=== PATIENT | male | born 1955 | race Caucasian/White ===

== ENCOUNTER → 2018-01-22 | Outpatient (CLI) | payer OTHER ==
[~2018-01-22] MED LIST: ALBU90OI; Aspir 8181 MG PO; Cipro500 MG PO; ERYT.5TO; Flagyl500 MG PO; LOSA25; METO50 PO; Percocet 5-3251 EACH PO
[2018-01-22 15:50] LABS: Microalb/Creat Ratio UR, Rand 25.494 mg/g (0.000-30.000); Microalbumin, Random Urine 41.3 mg/L (0.000-20.000)
== END | disposition home or self-care (01) ==
LOC: LAB SHORT 13:25 → LAB 13:25
PROVIDERS: Family Medicine
DX: I10 Essential (primary) hypertension (principal); E78.5 Hyperlipidemia, unspecified; D72.829 Elevated white blood cell count, unspecified
CPT/HCPCS: 82043; 82570

== ENCOUNTER 2023-11-08 14:06 | Emergency (ER) | payer OTHER ==
[~2023-11-08] VITALS: Ht 185.4 cm; Wt 99.8 kg
[2023-11-08 14:18] VITALS: BP 163/108
== END 2023-11-08 15:02 | disposition home or self-care (01) ==
LOC: ER 14:06
DX: T24.231A Burn of second degree of right lower leg, initial encounter (principal); T31.0 Burns involving less than 10% of body surface; T24.121A Burn of first degree of right knee, initial encounter; T24.122A Burn of first degree of left knee, initial encounter; T25.111A Burn of first degree of right ankle, initial encounter; T25.112A Burn of first degree of left ankle, initial encounter; I10 Essential (primary) hypertension; J45.909 Unspecified asthma, uncomplicated; F17.200 Nicotine dependence, unspecified, uncomplicated; Z79.82 Long term (current) use of aspirin; Z79.899 Other long term (current) drug therapy; Z88.5 Allergy status to narcotic agent; Z88.8 Allergy status to other drugs, medicaments and biological substances; X16.XXXA Contact with hot heating appliances, radiators and pipes, initial encounter
CPT/HCPCS: 99282

== ENCOUNTER 2023-11-17 16:20 | Emergency (ER) | payer OTHER ==
[~2023-11-17] VITALS: Ht 185.4 cm; Wt 99.8 kg
[2023-11-17 16:24] VITALS: BP 152/111
[2023-11-17] MEDS ORDERED: CLIN300 PO (17:06)
== END 2023-11-17 17:19 ==
LOC: ER 16:20
DX: T24.232A Burn of second degree of left lower leg, initial encounter (principal); L08.9 Local infection of the skin and subcutaneous tissue, unspecified; T31.0 Burns involving less than 10% of body surface; I10 Essential (primary) hypertension; J45.909 Unspecified asthma, uncomplicated; F17.200 Nicotine dependence, unspecified, uncomplicated; Z79.899 Other long term (current) drug therapy; Z88.5 Allergy status to narcotic agent; Z88.8 Allergy status to other drugs, medicaments and biological substances; X16.XXXA Contact with hot heating appliances, radiators and pipes, initial encounter
CPT/HCPCS: 87070; 87075; 87077; 87186; 87205; 99282; A9270

== ENCOUNTER 2023-12-03 04:54 | Day surgery (SDC) | payer OTHER ==
[~2023-12-03 04:54] MED LIST changes: +CLIN300 PO
== END 2023-12-03 22:38 | disposition home or self-care (01) ==
LOC: WOUND 04:54
DX: T24.202D Burn of second degree of unspecified site of left lower limb, except ankle and foot, subsequent encounter (principal); T24.201D Burn of second degree of unspecified site of right lower limb, except ankle and foot, subsequent encounter; I73.9 Peripheral vascular disease, unspecified; I10 Essential (primary) hypertension; I87.2 Venous insufficiency (chronic) (peripheral); R06.02 Shortness of breath; J44.9 Chronic obstructive pulmonary disease, unspecified; Z88.5 Allergy status to narcotic agent
CPT/HCPCS: A9270; G0463

== ENCOUNTER 2023-12-10 03:44 | Day surgery (SDC) | payer OTHER | END 2023-12-10 22:57 | disposition home or self-care (01) | LOC: WOUND 03:44 | DX: T24.202A Burn of second degree of unspecified site of left lower limb, except ankle and foot, initial encounter (principal); T24.201A Burn of second degree of unspecified site of right lower limb, except ankle and foot, initial encounter; X16.XXXA Contact with hot heating appliances, radiators and pipes, initial encounter; I73.9 Peripheral vascular disease, unspecified; I87.2 Venous insufficiency (chronic) (peripheral); I10 Essential (primary) hypertension; J44.9 Chronic obstructive pulmonary disease, unspecified | CPT/HCPCS: A9270; G0463 ==

== ENCOUNTER 2023-12-27 01:38 | Day surgery (SDC) | payer OTHER | END 2023-12-27 23:14 | disposition home or self-care (01) | LOC: WOUND 01:38 | DX: T24.202D Burn of second degree of unspecified site of left lower limb, except ankle and foot, subsequent encounter (principal); T24.201D Burn of second degree of unspecified site of right lower limb, except ankle and foot, subsequent encounter; J44.9 Chronic obstructive pulmonary disease, unspecified; I10 Essential (primary) hypertension; I73.9 Peripheral vascular disease, unspecified; I87.2 Venous insufficiency (chronic) (peripheral); R06.02 Shortness of breath; X08.8XXD Exposure to other specified smoke, fire and flames, subsequent encounter | CPT/HCPCS: A9270; G0463 ==

== ENCOUNTER 2024-01-03 01:54 | Day surgery (SDC) | payer OTHER ==
[2024-01-03] MEDS ORDERED: Lidocaine HCl 4% Cream 5 GM ONE (15:40)
== END 2024-01-03 22:47 | disposition home or self-care (01) ==
LOC: WOUND 01:54
DX: T24.202A Burn of second degree of unspecified site of left lower limb, except ankle and foot, initial encounter (principal); T24.201A Burn of second degree of unspecified site of right lower limb, except ankle and foot, initial encounter; X08.8XXA Exposure to other specified smoke, fire and flames, initial encounter; I87.2 Venous insufficiency (chronic) (peripheral); I10 Essential (primary) hypertension; I73.9 Peripheral vascular disease, unspecified; R06.02 Shortness of breath; J44.9 Chronic obstructive pulmonary disease, unspecified
CPT/HCPCS: A9270

== ENCOUNTER 2024-01-11 01:34 | Day surgery (SDC) | payer OTHER | END 2024-01-13 23:15 | disposition home or self-care (01) | LOC: WOUND 01:34 | DX: T24.202D Burn of second degree of unspecified site of left lower limb, except ankle and foot, subsequent encounter (principal); T24.201D Burn of second degree of unspecified site of right lower limb, except ankle and foot, subsequent encounter; J44.9 Chronic obstructive pulmonary disease, unspecified; I10 Essential (primary) hypertension; I73.9 Peripheral vascular disease, unspecified; I87.2 Venous insufficiency (chronic) (peripheral); R06.02 Shortness of breath | CPT/HCPCS: G0463 ==

== ENCOUNTER 2024-01-17 03:04 | Day surgery (SDC) | payer OTHER ==
[2024-01-17] MEDS ORDERED: Lidocaine HCl 4% Cream 5 GM ONE (08:05)
== END 2024-01-17 22:44 | disposition home or self-care (01) ==
LOC: WOUND 03:04
DX: T24.202A Burn of second degree of unspecified site of left lower limb, except ankle and foot, initial encounter (principal); T24.201A Burn of second degree of unspecified site of right lower limb, except ankle and foot, initial encounter; W29.2XXA Contact with other powered household machinery, initial encounter; S71.102A Unspecified open wound, left thigh, initial encounter; S71.101A Unspecified open wound, right thigh, initial encounter; X58.XXXA Exposure to other specified factors, initial encounter; I10 Essential (primary) hypertension; J44.9 Chronic obstructive pulmonary disease, unspecified
CPT/HCPCS: A9270

== ENCOUNTER 2025-03-18 03:37 | Inpatient (IN) | payer SELFPAY ==
[2025-03-18] VITALS (20 sets, daily range): BP systolic 77–134; BP diastolic 39–88
[~2025-03-18] VITALS: Ht 182.9 cm; Wt 86.2 kg
[~2025-03-18 03:37] MED LIST changes: -ALBU90OI; +ALBU90OI INH
[2025-03-18 04:07] LABS: Hematocrit 45.3 % (37.0-53.0); Hemoglobin 14.7 g/dL (13.5-17.5); Mean Corpuscular HGB 31.3 pg (26.0-34.0); Mean Corpuscular HGB Conc 32.5 g/dL (31.5-36.5); Mean Corpuscular Volume 96 fL (80-100); Platelet Count 249 K/mm3 (150-400); RDW Coefficient Variation 14.6 % (11.7-14.2); RDW Standard Deviation 52.2 fL (35.1-46.3)
[2025-03-18] MEDS ORDERED: Piperacillin/Tazobactam Sod 3.375 GM in NS 100 ML IV ONE (04:20)
[2025-03-18] MEDS ORDERED: Lactated Ringer's 1,000 ML IV SCH ×2 (04:20→05:30)
[2025-03-18] MEDS ORDERED: Vancomycin HCL 2,000 MG in NS 520 ML IV ONE (04:20)
[2025-03-18 04:24] LABS: White Blood Cell Count 54.47 K/mm3 (4.00-11.30)
[2025-03-18 04:27] LABS: BAND PERCENT MAN 3 % (0-8); BASOPHILS PERCENT MAN 0 % (0-2); EOSINOPHILS PERCENT MAN 0 % (0-6); LYMPHOCYTES % ATYPICAL MANUAL 1 % (0-0); LYMPHOCYTES ABSOLUTE MAN 2.17 K/mm3 (0.84-5.20); LYMPHOCYTES PERCENT MAN 3 % (21-46); MONOCYTES ABSOLUTE MAN 1.63 K/mm3 (0.16-1.47); MONOCYTES PERCENT MAN 3 % (4-13); NEUTROPHILS ABSOLUTE MAN 50.65 K/mm3 (1.96-9.15); SEG NEUTROPHILS PERCENT MAN 90 % (41-73); TOTAL CELLS COUNTED 100
[2025-03-18 04:28] LABS: Albumin, Blood 2.1 g/dL (3.4-5.0); Albumin/Globulin Ratio 0.7 (0.8-1.8); Bilirubin, Total 1.5 mg/dL (0.1-1.0); Calcium, Blood 7.5 mg/dL (8.5-10.1); Creatinine, Blood 1.07 mg/dL (0.60-1.20); Globulin, Blood 3.1 g/dL (2.2-4.0); Potassium, Blood 3.4 mmol/L (3.5-5.5); Total Protein, Blood 5.2 g/dL (6.4-8.2)
[2025-03-18] MEDS ORDERED: NS 1,000 ML IV SCH (06:00)
[2025-03-18] MEDS ORDERED: Ondansetron HCl 2 MG / ML 2ML Vial IV PRN (06:00)
[2025-03-18] MEDS ORDERED: Albumin (Human) 25gm/100ml 100 ML IV ONE (06:55)
[2025-03-18] MEDS ORDERED: Potassium Chloride 40 MEQ in NS 250 ML IV ONE (07:00)
[2025-03-18] MEDS ORDERED: CALCIUM GLUC IN NACL, ISO-OSM 50 ML IV ONE (07:00)
[2025-03-18] MEDS ORDERED: Prochlorperazine Edisylate 10 mg Vial IV PRN (07:25)
[2025-03-18 07:27] LABS: Influenza A, PCR NEGATIVE (NEGATIVE); Influenza B, PCR NEGATIVE (NEGATIVE); Resp Syncytial Virus, PCR NEGATIVE (NEGATIVE); SARS-Cov-2 (COVID-19) PCR, MMC NEGATIVE (NEGATIVE)
[2025-03-18] MEDS ORDERED: Ipratropium/Albuterol SulF 2.5-0.5MG/3 ML Amp INH SCH (07:30)
[2025-03-18] MEDS ORDERED: Polyethylene Glycol 3350 17 gm PO PRN (07:30)
[2025-03-18] MEDS ORDERED: Docusate Sodium/Senna 1 Tab PO PRN (07:30)
[2025-03-18] MEDS ORDERED: Metoprolol Tartrate 1 MG/ML 5 ML VIAL IV PRN (07:35)
[2025-03-18] MEDS ORDERED: Mometasone/Formoterol MDI 200/5 mcg 13 GM INH SCH (07:45)
[2025-03-18] MEDS ORDERED: MethylPREDNISolone Sod Succ 125 MG Vial IV SCH (09:00)
[2025-03-18] MEDS ORDERED: Midodrine 2.5 MG Tab PO SCH (09:00)
[2025-03-18] MEDS ORDERED: Enoxaparin 40 MG/0.4 ML SYR SC SCH (09:00)
[2025-03-18] MEDS ORDERED: Furosemide 10 MG/ML 4ML Vial IV SCH (09:00)
--- NOTE | 2025-03-18 09:49 | NUR ---
0805 ARRIVED TO ICU PT FROM ER. PT IS AWAKE AND ALERT AND ORIENTED TO PLACE AND PERSON BUT NOT YEAR OR DATE OR TRUE SITUATION. HE BELIEVES HE IS HERE D/T HIS FALL THREE DAYS AGO HOWEVER HIS WBC IS ELEVATE AND HE WAS AFEBRILE LOW TEMP. PULSE IS AFIB 130-140'S AND BP IS LOW. NO HISTORY OF AFIB PER NOTED BY PT. HE DOESN'T TAKE BUT AN INHALER RESCUE WORTHY ONLY. LUNGS ARE CLEAR AND ABD IS SOFT AND GOOD BT THROUGHOUT. HE IS STILL LOW TEMP OF 96.3 F UPON ARRIVAL. PT HAS TWO PIV'S LEFT AC AND LEFT HAND.
[2025-03-18] MEDS ORDERED: Albuterol 2.5 MG/3 ML VIAL INH PRN (11:30)
[2025-03-18] MEDS ORDERED: Piperacillin/Tazobactam Sod 4.5 GM in NS 100 ML IV SCH (12:00)
[2025-03-18 12:04] LABS: Source, Urine Voided
[2025-03-18 12:09] LABS: Appearance, Urine Clear (Clear); Bilirubin, Urine Neg (Neg); Blood, Urine Neg (Neg); Color, Urine Yellow (P-Yellow); Glucose Qualitative, Urine Neg (Neg); Ketones, Urine Neg (Neg); Leukocyte Esterase, Urine Neg (Neg); Nitrite, Urine Neg (Neg); Protein, Urine Neg (Neg); Urobilinogen, Urine NORM (Normal)
[2025-03-18 12:34] LABS: U Amphetamine Screen DETECTED; U Barbituate Screen Not Detected; U Benzodiazapine Screen Not Detected; U Buprenorphine Screen Not Detected; U Cannabinoids Screen DETECTED; U Cocaine Screen Not Detected; U Methadone Screen Not Detected; U Methamphetamine Screen DETECTED; U Opiates Screen Not Detected; U Oxycodone Screen DETECTED; U Phencyclidine Screen Not Detected
[2025-03-18] MEDS ORDERED: PredniSONE 20 MG Tab PO SCH (14:00)
--- NOTE | 2025-03-18 14:35 | NUR ---
update PATIENT HAS BEEN UP IN CHAIR MOST OF THE MORNING ALONG WITH UP GOING TO THE BATHROOM FREQ. LIKE EVERY 20 MIN SINCE LASIX WAS GIVEN VOIDING ANYWHERE FROM 150-400ML OUT EACH TIME. HE HAS A SITTER AT BEDSIDE NOW D/T THE UNSTEADINESS ON HIS FEET AND IMPULISIVITY AND URGENCY AND FREQUENCY OF NEEDING TO VOID. PULSE DID GO DOWN TO 120'S AFIB WHEN GIVEN LOPRESSOR THIS AM HOWEVER IT DID CLIMB BACK UP TO 135-143 AGAIN AND SO NOW AT 1435 ANOTHER 5MG DOSE OF LOPRESSOR WAS GIVEN VIA IV. AWAITING FOR SERVICE CONTROL OPERATOR AND TO DO A CT OF CHEST. CALLED AND SPOKE WITH DR DARNELL REGARDING THE CXR RESULTS FROM THIS AM AND WE ARE NOT GOING TO DO A CT OF CHEST. ALSO SPOKE WITH PATIENTS SON DOTTIE AND GAVE HIM AN UPDATE.
[2025-03-18] MEDS ORDERED: Vancomycin HCL 1,000 MG in NS 250 ML IV SCH (17:00)
--- NOTE | 2025-03-18 18:35 | NUR ---
END OF SHIFT NOTE PT HAS BEEN AWAKE AND ACTIVE ALL DAY. HE CAME IN WITH HIGH WBC AND LACTIC 2.5 THEN DOWN TO 2.1 THEN BACK UP TO 3.3. PT HAS HAD A AFIB RHYTHM ALL DAY WITH RATES UP TO 143 AND LOW AT 118. HE HAS BEEN GIVEN LOPRESSOR IV 5MG IV TWO TIMES NOW. PT HAS BEEN UP TO CHAIR OR OUT OF BED TO TOILET VOIDING FREQ. ALL DAY. SITTER IS AT BEDSIDE TO HELP WITH LINE MANAGEMENT AND STEADING HIM WHEN HE IS OUT OF BED SO OFTEN. PT BP IS STILL SYSTOLICS HIGH 80'S LOW 90'S. MAP MID TO HIGH 60'S AND 70'S. PT ABLE TO EAT DINNER TONIGHT WITH SOFT TEXTURE D/T HIM NOT HAVING ANY TEETH AND REFUSES TO WEAR HIS DENTURES. HE HAS NOT HAD A BM OF YET TODAY. HIS TEMPURATURE HAS INCREASED TO NORMAL TEMP. CURRENTLY HERE AT THE END OF THE DAY. PT DOES NOT COMPLAIN OF ANY PAIN CURRENTLY. HE HAD AN ECHO TODAY. HE IS STILL SUPPOSE TO CO FOR A CT OF HIS CHEST. SON DOTTIE SPOKE WITH HIM ON THE PHONE TODAY BUT NO ONE HAS COME IN TO SEE HIM OF YET. ANTIBIOTICS GIVEN IV PERSCRIBED AND ALSO HE HAS BEEN GIVEN MIDODRINE TWICE TODAY BY MOUTH. WILL GIVE REPORT TO NEXT SHIFT TO RESUME CARE.
[2025-03-19] VITALS (15 sets, daily range): BP systolic 87–140; BP diastolic 63–112
[2025-03-19 04:10] LABS: Hematocrit 41.7 % (37.0-53.0); Hemoglobin 13.7 g/dL (13.5-17.5); Mean Corpuscular HGB 31.3 pg (26.0-34.0); Mean Corpuscular HGB Conc 32.9 g/dL (31.5-36.5); Mean Corpuscular Volume 95 fL (80-100); Mean Platelet Volume 9.3 fL (9.1-12.4); Platelet Count 264 K/mm3 (150-400); RDW Coefficient Variation 14.7 % (11.7-14.2); RDW Standard Deviation 51.3 fL (35.1-46.3); Red Blood Cell Count 4.38 M/mm3 (4.30-5.90)
[2025-03-19 04:12] LABS: White Blood Cell Count 57.08 K/mm3 (4.00-11.30)
[2025-03-19 04:29] LABS: Albumin, Blood 2.2 g/dL (3.4-5.0); Albumin/Globulin Ratio 0.8 (0.8-1.8); Bilirubin, Total 0.9 mg/dL (0.1-1.0); Bun/Creatinine Ratio 19.2 (12.0-20.0); Creatinine, Blood 1.04 mg/dL (0.60-1.20); Globulin, Blood 2.9 g/dL (2.2-4.0); Potassium, Blood 4.1 mmol/L (3.5-5.5); Total Protein, Blood 5.1 g/dL (6.4-8.2)
[2025-03-19 04:35] LABS: BAND PERCENT MAN 10 % (0-8); BASOPHILS PERCENT MAN 0 % (0-2); EOSINOPHILS PERCENT MAN 0 % (0-6); LYMPHOCYTES ABSOLUTE MAN 1.14 K/mm3 (0.84-5.20); LYMPHOCYTES PERCENT MAN 2 % (21-46); MONOCYTES ABSOLUTE MAN 3.42 K/mm3 (0.16-1.47); MONOCYTES PERCENT MAN 6 % (4-13); NEUTROPHILS ABSOLUTE MAN 52.51 K/mm3 (1.96-9.15); SEG NEUTROPHILS PERCENT MAN 82 % (41-73); TOTAL CELLS COUNTED 100
--- NOTE | 2025-03-19 05:14 | NUR ---
PT LEFT FOR CHEST CT COIL REWIND MACHINE OPERATOR, ZA, TOOK PT TO CT FOR ME. PT IN WHEELCHAIR, LEFT 0505.
--- NOTE | 2025-03-19 05:16 | NUR ---
PT RETURNED FROM CT 0516.
[2025-03-19] MEDS ORDERED: OxyCODONE HCL 5 MG TAB PO PRN (08:15)
[2025-03-19] MEDS ORDERED: Acetaminophen 325 MG TABLET PO PRN (08:15)
[2025-03-19] MEDS ORDERED: HYDROmorphone HCl/Pf 1MG SYR IV ONE (08:15)
[2025-03-19] MEDS ORDERED: Midodrine 5 MG Tab PO SCH ×2 (09:00)
[2025-03-19] MEDS ORDERED: Loratadine 10 MG Tab PO SCH (09:00)
[2025-03-19] MEDS ORDERED: Metoprolol Tartrate 25 MG Tab PO SCH (09:00)
[2025-03-19] MEDS ORDERED: PredniSONE 20 MG Tab PO SCH (09:00)
[2025-03-19] MEDS ORDERED: Piperacillin/Tazobactam Sod 4.5 GM in NS 100 ML IV SCH (14:00)
--- NOTE | 2025-03-19 16:07 | NUR ---
PT REQUESTED TO GO FOR A WALK. PT PROVIDED SLIP RESISTANT SOCKS AND WAS ASSISTED FOR HIS WALK. 1 RN WITH WHEELCHAIR BEHIND PT FOR IF HE WAS TO GET TIRED. THE OTHER RN MANAGING IV POLE. PT ABLE TO AMBULATE FROM ICU TO PCU, ROUGHLY 100 FEET, TOLERATED FAIR. PT GOT TIRED IN HIS LEGS AND WAS ABLE TO SIT IN WHEELCHAIR. PT WAS TAKEN TO COURT YARD FOR ROUGHLY 20 MINUTES. PT RETURNED TO ROOM AND WAS ABLE TO TRNAFER FROM WHEELCHAIR TO BED ON HIS OWN, TOLERATED WELL.
--- NOTE | 2025-03-19 16:17 | NUR ---
THIS RN GAVE REPORT TO ADMINISTRATIVE DIETITIAN, TOMASZ, TO TAKE OVER CARE.
--- NOTE | 2025-03-19 18:16 | NUR ---
SHIFT SUMMARY PT A&O X 4, IMPULSIVE. SITTER AT BEDSIDE. 1 ASST TO AMBULATE IN ROOM W CANE. VITALS STABLE, AFIB IN 90s-110s. NO ACUTE CHANGES THIS SHIFT. AMIODARONE DRIP INFUSING AT 0.5MG/HR. PT HAS EXCELLENT APPETITE T/O SHIFT, REQUESTING MULTIPLE SNACKS, COMPLIANT WITH SOFT/ BITE SIZED DIET. PT RE-EDUCATED ON IMPORTANCE OF MEDICATIONS MULTIPLE TIMES T/O SHIFT, STILL FREQUENTLY REQUESTS TO LEAVE BUT REPORTS THAT HE WILL STAY THROUGH THE NIGHT. PT TAKEN FOR WALK AND SAT IN COURTYARD W STAFF, WHICH EASED HIS FRUSTRATION/ DESIRE TO LEAVE.
[2025-03-19] MEDS ORDERED: TraZODone HCl 50 MG Tab PO SCH (21:00)
--- NOTE | 2025-03-19 21:08 | NUR ---
ASSUMPTION OF CARE PT LUYING IN BED IN NO APPARENT DISTRESS WITH SITTER IN ROOM. PT ALERT AND ORIENTED TO ALL. BP STABLE NOW THOUGH REPORT OF SOFT BP'S YESTERDAY. A FIB RHYTHM AT 115, AMIO INFUSING AT 0.05 MG/MIN. RESPIRATIONS REGULAR WITH CRACKLES IN BASES AND SAT OF 92% ON RA. NO CHEST PAIN/PRESSURE, AB PAIN, N/V. PT DENIES PAIN ANYWHERE AT THIS TIME. PT IS AGREEABLE TO STAY FOR LUNG BIOPSY TOMORROW. WILL CONTINUE PLAN OF CARE AND MAKE PT COMFORTABLE POSSIBLE.
[2025-03-20 00:24] VITALS: BP 99/65
[2025-03-20 03:58] VITALS: BP 109/80
[2025-03-20 04:02] LABS: Hemoglobin 13.3 g/dL (13.5-17.5); Mean Corpuscular HGB 31.7 pg (26.0-34.0); Mean Corpuscular HGB Conc 33.3 g/dL (31.5-36.5); Mean Corpuscular Volume 95 fL (80-100); Mean Platelet Volume 9.1 fL (9.1-12.4); Platelet Count 265 K/mm3 (150-400); RDW Coefficient Variation 15.1 % (11.7-14.2); RDW Standard Deviation 53.4 fL (35.1-46.3)
[2025-03-20 04:06] LABS: White Blood Cell Count 63.16 K/mm3 (4.00-11.30)
--- NOTE | 2025-03-20 04:10 | NUR ---
ASSUMPTION OF CARE ASSUMED CARE OF PT FROM [facility] O[facility] ICU @ 0400. PT IRATE ABOUT BEING WOKEN UP. MAKING STATEMENTS LIKE "WHO'S CAR DO I NEED TO THRASH FOR BEING WOKEN UP, WHERE SHOULD I PUT THE HOLES IN THE SPENCER HERE, BEING WOKEN UP LIKE THIS IS TORTURE DO YOU KNOW THE PENALTY FOR THAT?, I WILL NOT BE COOPERATIVE ANY MORE". PT NOW REFUSING TELEMETRY, REFUSING AMIODARONE GTT, REFUSING CARE IN GENERAL. STATES "I AM HERE FOR THIS LUNG BIOPSY AND THAT IS IT, NO OTHER CARE IS NEEDED. PT MENTATION PRESENTS APPROPRIATE TO MAKE DECISIONS FOR HEALTH - AXO4. VITALS TAKEN. TELE PULLED OFF, IV PULLED OUT EXCEPT FOR POWERGLIDE. PT ORIENTED TO ROOM. PT ARRIVED WITH SITTER AND WILL REMAIN WITH ONE AT THIS TIME HE VOIDS OFTEN UNSAFELY WITH DIURESING. PT HAS MADE IT VERY CLEAR IN FRONT OF MULTIPLE STAFF THAT "HE DOES NOT WANT ANYMORE CARE TONIGHT, NO MEDICATIONS, NOTHING".
[2025-03-20 04:19] LABS: Bun/Creatinine Ratio 21.3 (12.0-20.0); Calcium, Blood 8.2 mg/dL (8.5-10.1); Creatinine, Blood 0.94 mg/dL (0.60-1.20); Magnesium, Blood 2.1 mg/dL (1.6-2.4); Phosphorus, Blood 3.7 mg/dL (2.5-4.9); Potassium, Blood 3.9 mmol/L (3.5-5.5)
--- NOTE | 2025-03-20 04:22 | NUR ---
TRANSFER OF CARE PT AWOKE FOR TRANSFER OF CARE TO PCU 9 AND THE PT AWOKE SEVERELY UPSET. PT ANGRY AND THREATENING TO LEAVE AND PULL OUT ALL LINES. PT ALERT AND ORIENTED. PT COAXED INTO STAYING AND TRANSFERRING TO PCU 9, WITH THE PLAN TO TRY AND GO BACK TO SLEEP. AT TIME OF TRANSFER, A FIB RHYTHM AT 105. LAST BP AT 0030 MAP OF 75. RESPIRATIONS REGULAR. SATURATION 93% ON RA. COARSE AND DIMINISHED IN BASES. NO CHEST PAIN/PRESSURE, AB PAIN, N/V. PT AT MULTIPLE SNACKS DURING SHIFT, WITHOUT NOTABLE DIFFICULTY SWALLOWING. CONTINENT WITH URINE. PT INCONTINENT WITH FECES UPON AWAKENING FOR TRANSFER. WIPED AND ATTENDS CHANGED. AMIODARONE WAS INFUSING AT 0.5 MG/MIN AND ZOSYN AT 25ML/HR WHEN IV'S DISCONNECTED FOR TRANSFER/PT THREATENING TO PULL "EVERYTHING OUT." OF NOTE: PT IS EXPECTING BIOPSY IN THE AM. ACCORDING TO DR CHOWDARY MOST RECENT NOTE, EPI WILL FOLLOW PT, BUT PROCEDURE WILL BE DONE IN OUTPATIENT SETTING. PT UNAWARE OF THIS INFORMATION AT TIME OF TRANSFER. THIS INFO WAS INCLUDED IN HANDOFF REPORT TO RECEIVING RN IN PCU.
[2025-03-20 07:53] VITALS: BP 112/82
--- NOTE | 2025-03-20 08:02 | NUR ---
AM NOTE PT ALERT, ORIENTED X4; PATIENT EXPRESSING FRUSTRATION "PISSED OFF" REGARDING NOT HAVING THE BIOPSY BEING COMPLETED TODAY. PT STATES "YOU HAVE UNTIL 9AM", PATIENT COOPERATIVE WITH ASSESSMENT AND VS, CONTINUES TO REFUSE HEART MONITOR. PT DENIES PAIN, CHEST PAIN/PRESSURE, SOB, NAUSEA, DIZZINESS AND NUMB/TINGLING. BILATERAL RED/PURPLE. SPO2 >90% ON RA, BREATHING TACHYPNIC, LS DIM WITH CRACKLES IN THE BASES. REFUSING TELE, HR IRREGULARLY, IRREGULAR AT 120, BP STABLE. ABD SOFT, NONTENDER + B/T T/O. OTHER VSS. CALL LIGHT WITHIN REACH, SITTER AT BEDSIDE. NOTIFIED DR DARNELL OF PT FRUSTRATION AND PLANS TO LEAVE BY 9AM IF WE DO NOT HAVE PLANS TO DO THE BIOPSY. REACHED OUT TO RADIOLOGY TO SEE WHAT CAN BE DONE INPATIENT.
[2025-03-20] MEDS ORDERED: ASPI81CH PO (09:14)
[2025-03-20] MEDS ORDERED: METOPROLOL TARTRATE PO ×2 (09:15)
[2025-03-20] MEDS ORDERED: CEPH500 PO ×2 (10:18)
--- NOTE | 2025-03-20 11:26 | NUR ---
Shift Summary We are unable to complete biopsy as inpatient; patient and family educated; Dr Putnam at bedside this am, plans for discharge home. Patient educated on discharge insturctions, follow up appointments (to call if they do not hear by sunday), and medications. Patient did not want to stay in room while waiting for ride, left via wheelchair 1040.
[2025-03-21] MEDS ORDERED: IBUP400 PO ×2 (09:11)
== END 2025-03-20 10:43 | disposition home or self-care (01) | DRG 871 ==
LOC: ER 03:37 → ICUE 05:54 → PCU 03-20 03:39
PROVIDERS: Hospitalist; Student in an Organized Health Care Education/Training Program; ADMIT Internal Medicine
DX: A41.9 Sepsis, unspecified organism (principal); J18.9 Pneumonia, unspecified organism; J96.01 Acute respiratory failure with hypoxia; J44.1 Chronic obstructive pulmonary disease with (acute) exacerbation; I50.22 Chronic systolic (congestive) heart failure; I48.91 Unspecified atrial fibrillation; F17.210 Nicotine dependence, cigarettes, uncomplicated; F10.90 Alcohol use, unspecified, uncomplicated; R91.8 Other nonspecific abnormal finding of lung field; W18.30XA Fall on same level, unspecified, initial encounter; Z90.89 Acquired absence of other organs; Z98.890 Other specified postprocedural states; Z79.82 Long term (current) use of aspirin; Z79.899 Other long term (current) drug therapy; Z91.048 Other nonmedicinal substance allergy status; Z88.8 Allergy status to other drugs, medicaments and biological substances; Z87.19 Personal history of other diseases of the digestive system
CPT/HCPCS: 0241U; 36415; 70450; 71045; 71250; 72125; 80048; 80053; 80202; 81003; 83605; 83690; 83735; 83880; 84100; 84145; 84484; 85025; 85027; 87040; 92610; 93005; 93010; 93306; 94640; 94760; 94762; A9270; C1751; J0282; J0612; J1171; J1650; J1940; J2543; J2919; J3370; J3480; J7040; J7050; J7060; J7120; J7512; P9047

== ENCOUNTER 2025-03-21 05:18 | Inpatient (IN) | payer OTHER ==
[~2025-03-21] VITALS: Ht 188 cm; Wt 90.5 kg
[2025-03-21] VITALS (7 sets, daily range): BP systolic 92–113; BP diastolic 61–80
[~2025-03-21 05:18] MED LIST changes: +ASPI81CH PO; +CEPH500 PO; +METOPROLOL TARTRATE PO
[2025-03-21] MEDS ORDERED: Ketorolac Tromethamine 30mg Vial IM ONE (07:20)
[2025-03-21] MEDS ORDERED: IBUP400 PO ×2 (09:11)
[2025-03-21] MEDS ORDERED: Ipratropium/Albuterol SulF 2.5-0.5MG/3 ML Amp INH ONE (10:05)
[2025-03-21] MEDS ORDERED: Albuterol 2.5 MG/3 ML VIAL INH SCH ×2 (10:05→11:30)
[2025-03-21] MEDS ORDERED: PredniSONE 20 MG Tab PO ONE (10:05)
[2025-03-21] MEDS ORDERED: Azithromycin 500 MG in NS 250 ML IV ONE (11:30)
[2025-03-21] MEDS ORDERED: Ipratropium/Albuterol SulF 2.5-0.5MG/3 ML Amp INH SCH (11:55)
[2025-03-21] MEDS ORDERED: Metoprolol Tartrate 1 MG/ML 5 ML VIAL IV SCH ×3 (11:55→13:00)
[2025-03-21] MEDS ORDERED: Vancomycin HCL 2,000 MG in NS 500 ML IV ONE (12:10)
[2025-03-21] MEDS ORDERED: Piperacillin/Tazobactam Sod 4.5 GM in NS 100 ML IV ONE (12:10)
[2025-03-21] MEDS ORDERED: Ipratropium/Albuterol SulF 2.5-0.5MG/3 ML Amp INH PRN (12:40)
[2025-03-21 12:55] LABS: Hematocrit 47.3 % (37.0-53.0); Hemoglobin 14.8 g/dL (13.5-17.5); Mean Corpuscular HGB 31.4 pg (26.0-34.0); Mean Corpuscular HGB Conc 31.3 g/dL (31.5-36.5); Mean Platelet Volume 9.1 fL (9.1-12.4); Platelet Count 284 K/mm3 (150-400); RDW Coefficient Variation 15.8 % (11.7-14.2); RDW Standard Deviation 58.3 fL (35.1-46.3); Red Blood Cell Count 4.71 M/mm3 (4.30-5.90)
[2025-03-21] MEDS ORDERED: Metoprolol Tartrate 25 MG Tab PO SCH (13:00)
[2025-03-21 13:03] LABS: Mean Corpuscular Volume 100 fL (80-100)
[2025-03-21 13:07] LABS: White Blood Cell Count 64.35 K/mm3 (4.00-11.30)
[2025-03-21 13:09] LABS: Albumin, Blood 2.5 g/dL (3.4-5.0); Albumin/Globulin Ratio 0.7 (0.8-1.8); Bilirubin, Total 0.8 mg/dL (0.1-1.0); Bun/Creatinine Ratio 35.5 (12.0-20.0); Calcium, Blood 8.8 mg/dL (8.5-10.1); Creatinine, Blood 0.85 mg/dL (0.60-1.20); Globulin, Blood 3.6 g/dL (2.2-4.0); Magnesium, Blood 2.4 mg/dL (1.6-2.4); Potassium, Blood 4.5 mmol/L (3.5-5.5); Total Protein, Blood 6.1 g/dL (6.4-8.2)
[2025-03-21 13:49] LABS: BAND PERCENT MAN 16 % (0-8); BASOPHILS PERCENT MAN 0 % (0-2); EOSINOPHILS PERCENT MAN 0 % (0-6); LYMPHOCYTES ABSOLUTE MAN 3.21 K/mm3 (0.84-5.20); LYMPHOCYTES PERCENT MAN 5 % (21-46); MONOCYTES ABSOLUTE MAN 3.86 K/mm3 (0.16-1.47); MONOCYTES PERCENT MAN 6 % (4-13); NEUTROPHILS ABSOLUTE MAN 57.27 K/mm3 (1.96-9.15); SEG NEUTROPHILS PERCENT MAN 73 % (41-73); TOTAL CELLS COUNTED 100
[2025-03-21] MEDS ORDERED: Nicotine 21 MG PATCH TOP SCH (16:00)
[2025-03-21] MEDS ORDERED: Metoprolol Tartrate 1 MG/ML 5 ML VIAL IV PRN (16:00)
[2025-03-21 16:15] LABS: Adenovirus Not Detected (NOT DETECT); Coronavirus 229E Not Detected (NOT DETECT); Coronavirus HKU1 Not Detected (NOT DETECT); Coronavirus NL63 Not Detected (NOT DETECT); Human Metapneumovirus Not Detected (NOT DETECT); Human Rhinovirus/Enterovirus Not Detected (NOT DETECT); Influenza A/2009-H1 Not Detected (NOT DETECT); Influenza A/H1 Not Detected (NOT DETECT); Influenza A/H3 Not Detected (NOT DETECT); Influenza B Not Detected (NOT DETECT); SARS-Cov-2 (COVID-19), BioFire Not Detected (NOT DETECT)
[2025-03-21 16:16] LABS: Bordetella pertussis Not Detected (NOT DETECT); Chlamydophila pneumoniae Not Detected (NOT DETECT); Coronavirus OC43 Not Detected (NOT DETECT); Mycoplasma pneumoniae Not Detected (NOT DETECT); Parainfluenza Virus 1 Not Detected (NOT DETECT); Parainfluenza Virus 2 Not Detected (NOT DETECT); Parainfluenza Virus 3 Not Detected (NOT DETECT); Parainfluenza Virus 4 Not Detected (NOT DETECT); Respiratory Syncytial Virus Not Detected (NOT DETECT)
[2025-03-21] MEDS ORDERED: Acetaminophen 325 MG TABLET PO PRN (16:30)
[2025-03-21] MEDS ORDERED: TraMADol HCl 50 MG Tab PO PRN (16:35)
--- NOTE | 2025-03-21 18:00 | NUR ---
Update: Patient was found at the edge of the bed leaning over the rail. When asked what he was doing he stated, "no one will feed me." This RN discussed with the patient he has had multiple snacks and a dinner tray, he can have a snack before bedtime. The patient proceeded to get up out of the bed to walk into the hallway, to "go and get some cookies myself then." This RN instructed the patient he cannot walk into the pantry and get items himself, nursing staff are only allowed in the pantry. Patient proceeded to state, "fine then I will leave and get some food myself since you won't feed me." He pulled apart his IV tubing and began to bleed out of his IV, he was walking around the room gathering his belongings. This RN was able to get the patient to sit down, to remove his IV so he doesn't leak blood everywhere. This RN talked with the patient regarding the comments he made earlier to the nursing staff and this will not be tolerated if he chooses to stay. This RN left the room to obtain AMA paperwork,if it is his intention to leave. This RN and nursing documentation supervisor went into talk with the patient. He was lying face down on the bed. This RN talked with the patient about ernien AMA, the patient would like to stay. He is agreeable to put the telemetry back on and have a new IV placed. We also discussed with the patient if he chooses to stay he will listen to and sign a behavior contract. The patient then listened and signed the paperwork. Bed alarm on for safety. Call light in reach.
--- NOTE | 2025-03-21 18:16 | NUR ---
ADMIT NOTE RECEIVED REPORT FROM ED RN. PATIENT TO ROOM VIA [facility] AT 1510. PT SOLMULENT, WAKES EASILY TO VERBAL STIMULI, QUICKLY FALLING BACK TO SLEEP WITHOUT STIMULI. ORIENTED. PT REPORTS PAIN TO RIGHT HIP, MEDICATED PER EMAR. PT REQUESTING FOOD REPEATEDLY, PROVIDED AND SET BOUNDARIES ON SNACKS. PT DENIES CHEST PAIN/PRESSURE, SOB, NAUSEA, AND DIZZINESS. TELE AFIB 120-130'S, BP SOFT TRENDING UP. SPO2 >90% ON 3L O2 VIA NC, PT TAKES OFF REPEATEDLY AND REMINDED TO PUT IT BACK ON. ABD SOFT, NONTENDER, HYPERACTIVE BT NOTED T/O. NO EDEMA NOTED. BLE DISCOLORED. THIS EVENING PATIENT GETTING AGGITATED, DEMANDING ADDITIONAL FOOD AFTER DINNER TRAY WAS FINISHED, ATTEMPTED TO TALK TO PATIENT AND SET BOUNDARIES FOR SNACKS/FOOD. PT STARTED MAKE DEROGATORY STATEMENTS TO STAFF, WHEN HE WAS ASKED TO STOP HE CONTINUES; CHARGE AND MD NOTIFIED, MAD CONSULT PLACED.
--- NOTE | 2025-03-21 20:52 | NUR ---
ASSUMED CARE OF THIS PATIENT AT 1900. PT WAS SLEEPING FACE DOWN ON THE BED DID NOT HAVE NC ON, PULSE OX OR TELE MONITOR. THIS RN AWOKE PATIENT AND EXPLAINED THE IMPORTANCE OF THESE ITEMS, AFTER EDUCATION HE ALLOWED ME TO PUT ON TELE, CONTINUS PULSE OX AND NC AT 3 LITERS. PATIENT IS AGITATED ABOUT HOW HIS DAY WENT. THIS RN AND PATIENT AGREE IF HE WOULD WORK WITH ME TO DO ASSESMENT AND TAKE MEDICATION THAT WE WOULD PROVIDE WITH NIGHT SNACK BEFORE BED. PATIENT WAS COPPERATIVE WITH ASSESMENT AND MEDICATION PASS. ZOSYN IS CURRENTLY RUNNING PER EMAR. NEW IV NEEDED TO BE PLACED DUE TO PT RIPPING OUT PRIOR ONE BEFORE START OF SHIFT. PATIENT EXPLAINS THAT ALL HE WANTS IS TO FEEL BETTER AND FOR US TO CONTINUE TO PROVIDE SNACKS AT HIS REQUEST. HE HOWEVER AGREED TO THREE MEALS A DAY WITH A SNACK IN BETWEEN THOSE AND WAS REEDUCATED ON THIS. HE IS NOW SITTING UP IN BED WATCHING TV. BED IN LOWEST POSTION, CALL LIGHT IN REACH.
[2025-03-21] MEDS ORDERED: MethylPREDNISolone Sod Succ 125 MG Vial IV SCH (21:00)
[2025-03-21] MEDS ORDERED: Apixaban 5 MG Tab PO SCH (21:00)
[2025-03-21] MEDS ORDERED: Piperacillin/Tazobactam Sod 4.5 GM in NS 100 ML IV SCH (21:00)
--- NOTE | 2025-03-21 23:35 | NUR ---
NURSE NOTE THIS RN WENT TO REPLACE TELE STICKERS AND CONTINUS PULSE OX STICKER PATIENT WAS BEING INAPPROPRIATE ASKING ME TO CRAWL INTO BED WITH HIM AND TO HOLD HIM AND KEEP HIM WARM. PT WAS OFFERED WARM BLANKET, PT DENIED THIS NEED. THIS RN ASKED HIM NOT TO SPEAK LIKE THAT BECAUSE IT IS NOT APPROPRIATE AND PT REPLIED, "WELL IT'S NOT LIKE I SAID I WANTED TO HAVE SEX WITH YOU." THIS RN AGAIN ASKED PT TO STOP BEING INAPPROPRIATE AND EXITED THE ROOM. BED IN LOWEST POSTION, CALL LIGHT IN REACH.
[2025-03-22] MEDS ORDERED: Vancomycin HCL 1,250 MG in NS 250 ML IV SCH
[2025-03-22 03:20] VITALS: BP 135/91
[2025-03-22 04:48] LABS: EOSINOPHILS ABSOLUTE AUTO 0.06 K/mm3 (0.00-0.68); EOSINOPHILS PERCENT AUTO 0 % (0-6); Hematocrit 44.1 % (37.0-53.0); Hemoglobin 13.9 g/dL (13.5-17.5); IMMATURE GRAN ABSOLUTE AUTO 3.68 K/mm3 (0.00-0.10); IMMATURE GRAN PERCENT AUTO 5 % (0-1); LYMPHOCYTES ABSOLUTE AUTO 0.83 K/mm3 (0.84-5.20); LYMPHOCYTES PERCENT AUTO 1 % (21-46); MONOCYTES ABSOLUTE AUTO 0.76 K/mm3 (0.16-1.47); MONOCYTES PERCENT AUTO 1 % (4-13); Mean Corpuscular HGB 31.7 pg (26.0-34.0); Mean Corpuscular HGB Conc 31.5 g/dL (31.5-36.5); Mean Corpuscular Volume 101 fL (80-100); Mean Platelet Volume 9.3 fL (9.1-12.4); NEUTROPHILS ABSOLUTE AUTO 70.78 K/mm3 (1.96-9.15); NEUTROPHILS PERCENT AUTO 93 % (41-73); Platelet Count 270 K/mm3 (150-400); RDW Coefficient Variation 15.6 % (11.7-14.2); RDW Standard Deviation 58.4 fL (35.1-46.3); Red Blood Cell Count 4.39 M/mm3 (4.30-5.90)
[2025-03-22 04:53] LABS: BASOPHILS ABSOLUTE AUTO 0.02 K/mm3 (0.00-0.23); BASOPHILS PERCENT AUTO 0 % (0-2); White Blood Cell Count 76.13 K/mm3 (4.00-11.30)
[2025-03-22 05:06] LABS: Albumin, Blood 2.4 g/dL (3.4-5.0); Albumin/Globulin Ratio 0.7 (0.8-1.8); Bilirubin, Total 0.6 mg/dL (0.1-1.0); Bun/Creatinine Ratio 37.8 (12.0-20.0); Calcium, Blood 8.4 mg/dL (8.5-10.1); Creatinine, Blood 0.77 mg/dL (0.60-1.20); Globulin, Blood 3.4 g/dL (2.2-4.0); Potassium, Blood 4.6 mmol/L (3.5-5.5); Total Protein, Blood 5.8 g/dL (6.4-8.2)
[2025-03-22 05:33] LABS: BAND PERCENT MAN 16 % (0-8); BASOPHILS PERCENT MAN 0 % (0-2); EOSINOPHILS PERCENT MAN 0 % (0-6); LYMPHOCYTES ABSOLUTE MAN 0.76 K/mm3 (0.84-5.20); LYMPHOCYTES PERCENT MAN 1 % (21-46); METAMYELOCYTE ABSOLUTE MAN 0.76 K/mm3 (0.00-0.00); METAMYELOCYTE PERCENT MAN 1 % (0-0); MONOCYTES PERCENT MAN 0 % (4-13); SEG NEUTROPHILS PERCENT MAN 82 % (41-73); TOTAL CELLS COUNTED 100
--- NOTE | 2025-03-22 06:36 | NUR ---
SHIFT SUMMARY PT REMAINS A+O X4 BUT STILL MAKING INAPPROPRIATE COMMENTS TO STAFF MEMBERS AND DEMANDING FOOD EVERYTIME STAFF COMES INTO ROOM FOR CARES. PT HAS BEEN EDUCATED ON TREATMENT CONTRACT OF BEHAVIORS HE SIGNED YESTERDAY BUT STILL CONTINUES TO ACT OUT. PT IS A SBA TO BATHROOM TO ASSIST WITH LINES. IV ABX GIVEN PER EMAR. CRITICAL WBC COUNT THIS AM (SEE LABS). VSS. PT WILL DESAT WHEN HE TAKES NC OFF HAD TO BE EDUCATED SEVERAL TIMES REASON FOR WEARING IT. PT IS ON 3 LITER NC SATTING AT 92% AND ABOVE WHEN WEARING IT PROPERLY. BED IN LOWEST POSTION CALL LIGHT IN REACH.
[2025-03-22 08:30] VITALS: BP 134/90
[2025-03-22] MEDS ORDERED: Nicotine 21 MG PATCH TOP SCH (09:00)
[2025-03-22] MEDS ORDERED: Aspirin 81 MG Chew PO SCH (09:00)
[2025-03-22] MEDS ORDERED: Empagliflozin 10 MG TAB PO SCH (09:00)
[2025-03-22 11:05] VITALS: BP 129/90
--- NOTE | 2025-03-22 11:11 | NUR ---
NOTE PT AWAKE AND ALERT. HE CONTINUES TO MAKE OFF COLOR SEXUAL COMMENTS TO THIS NURSE BUT HE HAS STOPPED WITH THE CNAS. HR TRENDING DOWN. BP STABLE. RESP EVEN AND UNLABORED.NO COUGH. VOIDING IN THE BATHROOM. CONTINUES TO ASK FOR FOOD/SNACKS. DENIED PAIN. CARE ONGOING.
[2025-03-22] MEDS ORDERED: NS 250 ML IV PRN (11:20)
--- NOTE | 2025-03-22 14:42 | NUR ---
ANXIOUS PT EXPRESSED DESIRE TO LEAVE. VISITED WITH HIM. ASKED HIM IF HAS EVER HAD SOMETHING FOR ANXIETY. HE STATED THATS WHY HE SMOKES MARIJUANA. HE HAS HAD ATIVAN AND XANAX AND VALIUM IN THE PAST. HE AGREED TO TALK WITH DR SMITH. CALLED DR AREVALO. PROVIDED A SNACK AND PEPSI FOR PT. CARE ONGOING.
[2025-03-22] MEDS ORDERED: OxyCODONE 5 mg/Acetamin 325 mg TABLET PO PRN (15:55)
[2025-03-22 16:02] VITALS: BP 126/88
--- NOTE | 2025-03-22 16:30 | NUR ---
NOTE PT AWAKE ALERT. AFIB ON TELEMETRY. VETRICULAR RATE 120'S SITTING ON THE SIDE OF THE BED. MEDCIATED FOR RIGHT HIP/FLANK PAIN X1 WITH ULTRAM. EFFECTIVE. PT CONTINUES TO WANT LOTS OF SNACKS. HE HAS EXPRESSED HIS BOREDOM HERE AND AT HOME. ALOMG WITH HIS LONELINESS AFTER HIS . EASILY REDIRECTABLE. DR AREVALO HAS BEEN UP TO TALK WITH HIM MULTIPLE TIMES. CARE ONGOING.
[2025-03-22 20:17] VITALS: BP 138/96
[2025-03-22] MEDS ORDERED: Amoxicillin/Clavulanate K 875 MG Tab PO SCH (21:00)
[2025-03-22] MEDS ORDERED: Metoprolol Tartrate 50 MG Tab PO SCH (21:00)
[2025-03-22] MEDS ORDERED: Melatonin 5 MG Tablet PO SCH (21:00)
[2025-03-22 23:35] VITALS: BP 126/95
[2025-03-23 03:49] VITALS: BP 137/84
[2025-03-23 05:16] LABS: Hematocrit 44.1 % (37.0-53.0); Mean Corpuscular HGB 31.7 pg (26.0-34.0); Mean Corpuscular HGB Conc 31.7 g/dL (31.5-36.5); Mean Corpuscular Volume 100 fL (80-100); Mean Platelet Volume 9.3 fL (9.1-12.4); Platelet Count 273 K/mm3 (150-400); RDW Coefficient Variation 15.3 % (11.7-14.2); RDW Standard Deviation 56.8 fL (35.1-46.3); Red Blood Cell Count 4.41 M/mm3 (4.30-5.90)
[2025-03-23 05:29] LABS: White Blood Cell Count 95.63 K/mm3 (4.00-11.30)
[2025-03-23 05:34] LABS: Albumin, Blood 2.5 g/dL (3.4-5.0); Albumin/Globulin Ratio 0.8 (0.8-1.8); Bilirubin, Total 0.7 mg/dL (0.1-1.0); Bun/Creatinine Ratio 36.2 (12.0-20.0); Calcium, Blood 8.4 mg/dL (8.5-10.1); Creatinine, Blood 0.72 mg/dL (0.60-1.20); Globulin, Blood 3.2 g/dL (2.2-4.0); Potassium, Blood 4.6 mmol/L (3.5-5.5); Total Protein, Blood 5.7 g/dL (6.4-8.2)
[2025-03-23 05:43] LABS: BAND PERCENT MAN 11 % (0-8); BASOPHILS PERCENT MAN 0 % (0-2); EOSINOPHILS PERCENT MAN 0 % (0-6); LYMPHOCYTES ABSOLUTE MAN 0.95 K/mm3 (0.84-5.20); LYMPHOCYTES PERCENT MAN 1 % (21-46); METAMYELOCYTE ABSOLUTE MAN 0.95 K/mm3 (0.00-0.00); METAMYELOCYTE PERCENT MAN 1 % (0-0); MONOCYTES ABSOLUTE MAN 5.73 K/mm3 (0.16-1.47); MONOCYTES PERCENT MAN 6 % (4-13); MYELOCYTE ABSOLUTE MAN 0.95 K/mm3 (0.00-0.00); MYELOCYTE PERCENT MAN 1 % (0-0); NEUTROPHILS ABSOLUTE MAN 87.02 K/mm3 (1.96-9.15); SEG NEUTROPHILS PERCENT MAN 80 % (41-73); TOTAL CELLS COUNTED 100
--- NOTE | 2025-03-23 06:31 | NUR ---
PT STABLE THROUGHOUT THE SHIFT. HR IMPROVED TO LOW 100's AND REMAINED IN AFIB. PT CONTINUES TO BE ANXIOUS AND IS HOPING TO D/C TODAY. PT IS AOX4, INDEPENDENT IN ROOM, IVSL. PT ABLE TO USE CALL LIGHT BUT ELECTS TO COME TO DOOR TO ASK FOR HELP DESPITE REPEATED ORIENTATION TO CALL LIGHT USE. PT HAS BEEN APPROPRIATE WITH THIS RN THIS SHIFT OTHERWISE. PT RT FOREARM IV INFILTRATED AND WAS D/C'D WITH CATH INTACT. PT VITAL SIGNS WNL EXCEPT HR PREVIOUSLY NOTED. PT WAS MEDICATED FOR RIGHT HIP PAIN X1 WITH TRAMADOL, SEE EMAR.
[2025-03-23 08:34] VITALS: BP 162/114
[2025-03-23] MEDS ORDERED: Metoprolol Tartrate 50 MG Tab PO SCH (09:00)
--- NOTE | 2025-03-23 10:07 | NUR ---
MAD Consult review: Reviewed medical record. Spoke with nursing staff. Patient signed a behavior contract over the weekend and has had improved behavior. They have also assigned male staff to care for him and he has been appropriate. I did not speak with the patient at the time due to his improved behavior but advise that females are not assigned if possible and if they are, they should not go into the room alone with him.
[2025-03-23] MEDS ORDERED: AMOCLA875 PO ×2 (12:45)
[2025-03-23] MEDS ORDERED: ELIQUIS5 M2 PO ×2 (12:46)
[2025-03-23] MEDS ORDERED: JARDIANCE10 MG PO ×2 (12:46)
[2025-03-23] MEDS ORDERED: IPRAT-ALBUT 0.5-3 ML INH ×2 (12:49)
[2025-03-23] MEDS ORDERED: MELATONIN10 M2 PO ×2 (12:50)
[2025-03-23] MEDS ORDERED: PRED20 ×2 (12:55)
--- NOTE | 2025-03-23 13:58 | NUR ---
DISCHARGE SUMMARY PT ADMITTED FOR DYSPNEA THAT WAS INCREASED DURING EXERTION, HE HAD BEEN TALKING ABOUT WANTING TO GO HOME TODAY SINCE SHIFT REPORT AND DESPITE HIS ELEVATED WBC HE CONTINUED TO REPORT HIS DESIRE TO JUST GO HOME AND F/U OUTPATIENT. PT REMOVED HIS TELE IN ANTICIPATION FOR DISCHARGE. PT CAME UP TO THE NURSES STATION DESK MULTIPLE TIMES INQUIRING ABOUT DC TIME. DC ORDERS AND MEDREC PLACED, DISCUSSED DC INSTRUCTIONS WITH HIM INCLUDING HOME CARE, MEDICATIONS, AND FOLLOW UP APPOINTMENTS INCLUDING A LAB ORDER TO BE DONE IN 3 DAYS. NO QUESTIONS AT THIS TIME, HE WAS ESCORTED OUT VIA WC TO PRIVATE AUTO TO GO HOME.
== END 2025-03-23 13:40 | disposition home or self-care (01) | DRG 871 ==
LOC: ER 05:18 → ERHOLD 05:19 → PCU 15:18
PROVIDERS: Student in an Organized Health Care Education/Training Program; ADMIT Hospitalist
DX: A41.9 Sepsis, unspecified organism (principal); J18.9 Pneumonia, unspecified organism; J96.01 Acute respiratory failure with hypoxia; I50.22 Chronic systolic (congestive) heart failure; J44.1 Chronic obstructive pulmonary disease with (acute) exacerbation; J44.0 Chronic obstructive pulmonary disease with (acute) lower respiratory infection; I48.20 Chronic atrial fibrillation, unspecified; F17.210 Nicotine dependence, cigarettes, uncomplicated; M16.10 Unilateral primary osteoarthritis, unspecified hip; G47.00 Insomnia, unspecified; F15.90 Other stimulant use, unspecified, uncomplicated; Z90.89 Acquired absence of other organs; Z98.890 Other specified postprocedural states; Z88.8 Allergy status to other drugs, medicaments and biological substances; Z79.82 Long term (current) use of aspirin; Z79.899 Other long term (current) drug therapy
CPT/HCPCS: 0202U; 36415; 71045; 73502; 80053; 83605; 83735; 83880; 84145; 85025; 85060; 93005; 93010; 94640; 94644; 94664; 94762; 96365; 96375; 99285-25; A9270; G0378; J0456; J1885; J2543; J2919; J3370; J7040; J7050; J7512

== ENCOUNTER 2025-03-27 06:45 | Inpatient (IN) | payer OTHER ==
[2025-03-27] VITALS (9 sets, daily range): BP systolic 80–118; BP diastolic 58–78
[~2025-03-27] VITALS: Ht 185.4 cm; Wt 89.4 kg
[~2025-03-27 06:45] MED LIST changes: +AMOCLA875 PO; +ELIQUIS5 M2 PO; +IBUP400 PO; +IPRAT-ALBUT 0.5-3 ML INH; +JARDIANCE10 MG PO; +MELATONIN10 M2 PO; +PRED20 PO
[2025-03-27] MEDS ORDERED: Ketorolac Tromethamine 30mg Vial IV ONE (07:30)
[2025-03-27] MEDS ORDERED: Dextrose 50% 50 ML Syringe IV ONE (07:30)
[2025-03-27] MEDS ORDERED: Diltiazem HCl 5 MG / ML 5ML Vial IV ONE (07:30)
[2025-03-27] MEDS ORDERED: dilTIAZem HCL 125 MG in Dextrose 5% 100 ML IV SCH (07:30)
[2025-03-27] MEDS ORDERED: Ipratropium/Albuterol SulF 2.5-0.5MG/3 ML Amp INH ONE (07:30)
[2025-03-27 07:50] LABS: Calcium, Ionized (POC) 1.01 mmol/L (1.10-1.46); Chloride (POC) 97 mmol/L (98-108); Creatinine (POC) 1.4 mg/dL (0.8-1.3); Glucose (ISTAT POC) 89 mg/dL (70-99); Hemoglobin (POC) 14.3 g/dL (13.5-17.5); Potassium (POC) 4.4 mmol/L (3.5-5.5); Sodium (POC) 133 mmol/L (135-148); Total CO2 (POC) 29 mmol/L (21-32)
[2025-03-27 07:57] LABS: EOSINOPHILS PERCENT AUTO 0 % (0-6); Hematocrit 39.4 % (37.0-53.0); Hemoglobin 12.7 g/dL (13.5-17.5); IMMATURE GRAN ABSOLUTE AUTO 3.15 K/mm3 (0.00-0.10); IMMATURE GRAN PERCENT AUTO 4 % (0-1); LYMPHOCYTES ABSOLUTE AUTO 1.78 K/mm3 (0.84-5.20); LYMPHOCYTES PERCENT AUTO 2 % (21-46); MONOCYTES ABSOLUTE AUTO 1.82 K/mm3 (0.16-1.47); MONOCYTES PERCENT AUTO 3 % (4-13); Mean Corpuscular HGB 31.7 pg (26.0-34.0); Mean Corpuscular HGB Conc 32.2 g/dL (31.5-36.5); Mean Corpuscular Volume 98 fL (80-100); Mean Platelet Volume 9.8 fL (9.1-12.4); NEUTROPHILS ABSOLUTE AUTO 66.71 K/mm3 (1.96-9.15); NEUTROPHILS PERCENT AUTO 91 % (41-73); Platelet Count 172 K/mm3 (150-400); RDW Coefficient Variation 16.4 % (11.7-14.2); Red Blood Cell Count 4.01 M/mm3 (4.30-5.90)
[2025-03-27 08:04] LABS: Base Excess Venous 2.4 mmol/L; Bicarbonate Venous 24.5 mmol/L (24.0-30.0); PCO2 Venous 58.5 mmHg (38-42)
[2025-03-27 08:07] LABS: BASOPHILS ABSOLUTE AUTO 0.03 K/mm3 (0.00-0.23); BASOPHILS PERCENT AUTO 0 % (0-2)
[2025-03-27 08:08] LABS: White Blood Cell Count 73.49 K/mm3 (4.00-11.30)
[2025-03-27 08:14] LABS: Albumin, Blood 2.3 g/dL (3.4-5.0); Albumin/Globulin Ratio 0.7 (0.8-1.8); Bilirubin, Total 2.1 mg/dL (0.1-1.0); Bun/Creatinine Ratio 26.8 (12.0-20.0); Calcium, Blood 8.1 mg/dL (8.5-10.1); Creatinine, Blood 1.27 mg/dL (0.60-1.20); Globulin, Blood 3.3 g/dL (2.2-4.0); Magnesium, Blood 2.4 mg/dL (1.6-2.4); Potassium, Blood 4.4 mmol/L (3.5-5.5); Total Protein, Blood 5.6 g/dL (6.4-8.2)
[2025-03-27 08:15] LABS: BASOPHILS PERCENT MAN 0 % (0-2); EOSINOPHILS PERCENT MAN 0 % (0-6); LYMPHOCYTES ABSOLUTE MAN 1.46 K/mm3 (0.84-5.20); LYMPHOCYTES PERCENT MAN 2 % (21-46); METAMYELOCYTE ABSOLUTE MAN 0.73 K/mm3 (0.00-0.00); METAMYELOCYTE PERCENT MAN 1 % (0-0); MONOCYTES ABSOLUTE MAN 0.73 K/mm3 (0.16-1.47); MONOCYTES PERCENT MAN 1 % (4-13); NEUTROPHILS ABSOLUTE MAN 70.55 K/mm3 (1.96-9.15); SEG NEUTROPHILS PERCENT MAN 96 % (41-73); TOTAL CELLS COUNTED 100
[2025-03-27] MEDS ORDERED: CALCIUM GLUC IN NACL, ISO-OSM 100 ML IV ONE (08:45)
[2025-03-27] MEDS ORDERED: Lactated Ringer's 1,000 ML IV SCH (09:00)
[2025-03-27] MEDS ORDERED: Apixaban 5 MG Tab PO SCH (09:12)
[2025-03-27] MEDS ORDERED: Bisacodyl 10 MG Supp PR PRN (09:15)
[2025-03-27] MEDS ORDERED: Magnesium Hydroxide Conc 10 ML UDC PO PRN (09:15)
[2025-03-27] MEDS ORDERED: Melatonin 5 MG Tablet PO PRN (09:50)
[2025-03-27] MEDS ORDERED: Ipratropium/Albuterol SulF 2.5-0.5MG/3 ML Amp INH PRN (09:50)
[2025-03-27] MEDS ORDERED: Acetaminophen 325 MG TABLET PO PRN (09:50)
[2025-03-27] MEDS ORDERED: Amoxicillin/Clavulanate K 875 MG Tab PO SCH (10:01)
[2025-03-27] MEDS ORDERED: Albuterol HFA200 ACT/6.7 GM INH INH PRN (10:05)
[2025-03-27] MEDS ORDERED: Cefepime HCl 2,000 MG in NS 100 ML IV SCH (10:59)
[2025-03-27] MEDS ORDERED: Vancomycin HCL 2,000 MG in NS 500 ML IV ONE (11:00)
[2025-03-27] MEDS ORDERED: NS 250 ML IV ONE (12:00)
[2025-03-27] MEDS ORDERED: METOPROLOL TART25 MG (13:26)
[2025-03-27] MEDS ORDERED: Metoprolol Tartrate 1 MG/ML 5 ML VIAL IV ONE ×2 (14:15→16:15)
[2025-03-27] MEDS ORDERED: Lactated Ringer's 250 ML IV ONE (15:00)
[2025-03-27] MEDS ORDERED: Albumin (Human) 25gm/100ml 100 ML IV ONE (15:20)
[2025-03-27] MEDS ORDERED: Midodrine 5 MG Tab PO PRN (17:35)
[2025-03-27] MEDS ORDERED: Metoprolol Tartrate 25 MG Tab PO ONE (18:00)
--- NOTE | 2025-03-27 18:51 | NUR ---
PT A&Ox4 ON 2-3LNC. AMIODARONE GTT PER EMAR. HE IS A X2 ASSIST TO BSC OR URINAL SITTING ON THE BEDSIDE D/T HIS HR. HE CAN BE DEMANDING AND THREATENS TO URINATE ON THE FLOOR OR THROW THE URINAL ON THE FLOOR BECAUSE HE WANTS TO GO TO THE BATHROOM. HE HAS TO BE REMINDED THAT WE ARE TRYING TO GET HIS HEART BACK INTO A REGULAR RYTHYM AND IT IS BEST FOR HIM NOT TO EXERT HIMSELF. FREQUENT URGE TO URINATE, BUT NOT MUCH OUTPUT. PERFORMED BLADDER SCAN AND HE HAD >800, NOTIFYING
[2025-03-27] MEDS ORDERED: Metoprolol Tartrate 25 MG Tab PO SCH (21:00)
[2025-03-27] MEDS ORDERED: Docusate Sodium 100 MG Cap PO SCH (21:00)
[2025-03-27] MEDS ORDERED: Sennosides 8.6 MG Tab PO SCH (21:00)
[2025-03-27] MEDS ORDERED: LORazepam 0.5 MG Tab PO ONE (23:15)
[2025-03-28] VITALS (8 sets, daily range): BP systolic 85–115; BP diastolic 59–84
[2025-03-28] MEDS ORDERED: Vancomycin HCL 1,000 MG in NS 250 ML IV SCH (01:00)
--- NOTE | 2025-03-28 06:03 | NUR ---
SHIFT SUMMARY PT IS A&O X4, ABLE TO MAKE NEEDS KNOWN, MOVING ALL EXTREMITIES WITH PURPOSE/ DOES HAVE RIGHT LEG WEAKNESS-PT STATES THAT HE HAS HX OF CVA, BED ALARM ACTIVE, TRANSFERES 2 PERSON ASSIT WITH FWW, USING CALL LIGHT APPROPRIATELY. CONTINUOUS SPO2, SPO2 GREATER THAN 90% ON 2L O2 VIA NC, LUNGS SOUND CLEAR T/O AND DIM IN THE BASES WITH OCCASIONAL EXPRIORITY WHEEZING. CONTINUOUS TELE MONITORING, AFLUTTER 100-110 S, PT DENIES CHEST P/P, PULSES PRESENT T/O, BP STABLE WITH MAP GREATER THAN 65, CAP REFILL WNL, AMMIODARONE DRIP RUNNING PER EMAR. BOWEL TONES PRESENT IN ALL 4Q, PT DENIES FEELINGS OF NAUSEA OR CONSTIPATION. PT STRAIGHT CATHED THIS SHIFT @ APPROX 0530 AFTER BEING UNABLE TO VOID, URINE YELLOW IN COLOR. BLE HAS SCABS AND REDNESS, RIGHT HIP NO SIGNS OF BURISING BUT IS FIRM AND TENDER TO TOUCH. PT AGITATED AT TIMES WITH CARE STATING GET AWAY FROM ME THIS SHIT DOESNT WORK /REFERING TO THE SCD S AND PT WOULD NOT ELABORATE WHY HE THOUGHT THEY DID NOT WORK, NOBODY CARES , I CANT SLEEP , RAISING HIS TONE WITH STAFF, ATTEMPTED TO DESCULAT AND ALLOW PT UNINTERUPTED REST. BED LOWEST POSITION, CALL LIGHT IN REACH, AWAITING TO GIVE REPORT TO ONCOMING RN.
[2025-03-28 06:10] LABS: Hematocrit 39.1 % (37.0-53.0); Hemoglobin 12.3 g/dL (13.5-17.5); Mean Corpuscular HGB Conc 31.5 g/dL (31.5-36.5); Mean Corpuscular Volume 99 fL (80-100); Mean Platelet Volume 10.2 fL (9.1-12.4); Platelet Count 141 K/mm3 (150-400); RDW Coefficient Variation 16.3 % (11.7-14.2); RDW Standard Deviation 58.4 fL (35.1-46.3); Red Blood Cell Count 3.97 M/mm3 (4.30-5.90)
[2025-03-28 06:20] LABS: White Blood Cell Count 64.28 K/mm3 (4.00-11.30)
[2025-03-28 06:31] LABS: BAND PERCENT MAN 11 % (0-8); BASOPHILS PERCENT MAN 0 % (0-2); EOSINOPHILS PERCENT MAN 0 % (0-6); LYMPHOCYTES ABSOLUTE MAN 2.57 K/mm3 (0.84-5.20); LYMPHOCYTES PERCENT MAN 4 % (21-46); METAMYELOCYTE ABSOLUTE MAN 0.64 K/mm3 (0.00-0.00); METAMYELOCYTE PERCENT MAN 1 % (0-0); MONOCYTES ABSOLUTE MAN 1.92 K/mm3 (0.16-1.47); MONOCYTES PERCENT MAN 3 % (4-13); NEUTROPHILS ABSOLUTE MAN 59.13 K/mm3 (1.96-9.15); SEG NEUTROPHILS PERCENT MAN 81 % (41-73); TOTAL CELLS COUNTED 100
[2025-03-28 06:37] LABS: Albumin, Blood 2.4 g/dL (3.4-5.0); Albumin/Globulin Ratio 0.8 (0.8-1.8); Bilirubin, Total 1.6 mg/dL (0.1-1.0); Bun/Creatinine Ratio 32.9 (12.0-20.0); Creatinine, Blood 0.94 mg/dL (0.60-1.20); Globulin, Blood 3.2 g/dL (2.2-4.0); Magnesium, Blood 2.3 mg/dL (1.6-2.4); Phosphorus, Blood 3.2 mg/dL (2.5-4.9); Potassium, Blood 4.2 mmol/L (3.5-5.5); Total Protein, Blood 5.6 g/dL (6.4-8.2)
[2025-03-28] MEDS ORDERED: Metoprolol Tartrate 50 MG Tab PO SCH (09:00)
[2025-03-28] MEDS ORDERED: Aspirin 81 MG Chew PO SCH (09:00)
[2025-03-28 12:23] LABS: Vancomycin, Random 14.8 ug/mL
[2025-03-28] MEDS ORDERED: Tamsulosin HCl 0.4 MG Cap PO SCH (16:00)
--- NOTE | 2025-03-28 17:03 | NUR ---
PT A&Ox4 ON RA. CURRENTLY SITTING UP IN RECLINER IN ROOM W/LEGS ELEVATED. HE IS A x2 ASSIST W/WALKER AND GAIT BELT TO AND FROM BED. DURING DAY SHIFT HE NEVER HAD ANY URGE TO URINATE, SO HE WAS BLADDER SCANNED AND WAS RETAINING >450ML OF URINE, PER DR ORDER A FARLEY CATHETER WAS PLACED. IT IS DRAINING TO GRAVITY WITH BYRON URINE. PT ASKS FOR SNACKS AND DRINKS FREQUENTLY. HE IS ALSO AGITATED VERY EASILY.
[2025-03-28] MEDS ORDERED: TraZODone HCl 50 MG Tab PO SCH (22:00)
[2025-03-28] MEDS ORDERED: Ketorolac Tromethamine 15mg Vial IV ONE (22:05)
[2025-03-29 03:40] VITALS: BP 82/51
[2025-03-29 03:52] LABS: BASOPHILS ABSOLUTE AUTO 0.16 K/mm3 (0.00-0.23); BASOPHILS PERCENT AUTO 0 % (0-2); EOSINOPHILS ABSOLUTE AUTO 0.14 K/mm3 (0.00-0.68); EOSINOPHILS PERCENT AUTO 0 % (0-6); Hemoglobin 10.7 g/dL (13.5-17.5); IMMATURE GRAN ABSOLUTE AUTO 1.53 K/mm3 (0.00-0.10); IMMATURE GRAN PERCENT AUTO 3 % (0-1); LYMPHOCYTES ABSOLUTE AUTO 1.33 K/mm3 (0.84-5.20); LYMPHOCYTES PERCENT AUTO 3 % (21-46); MONOCYTES ABSOLUTE AUTO 1.55 K/mm3 (0.16-1.47); MONOCYTES PERCENT AUTO 3 % (4-13); Mean Corpuscular HGB 31.8 pg (26.0-34.0); Mean Corpuscular HGB Conc 33.4 g/dL (31.5-36.5); Mean Corpuscular Volume 95 fL (80-100); Mean Platelet Volume 9.8 fL (9.1-12.4); NEUTROPHILS ABSOLUTE AUTO 44.05 K/mm3 (1.96-9.15); NEUTROPHILS PERCENT AUTO 90 % (41-73); Platelet Count 141 K/mm3 (150-400); RDW Coefficient Variation 16.1 % (11.7-14.2); RDW Standard Deviation 54.6 fL (35.1-46.3); Red Blood Cell Count 3.36 M/mm3 (4.30-5.90); White Blood Cell Count 48.76 K/mm3 (4.00-11.30)
[2025-03-29 04:17] LABS: Albumin, Blood 1.8 g/dL (3.4-5.0); Albumin/Globulin Ratio 0.6 (0.8-1.8); Bilirubin, Total 1.4 mg/dL (0.1-1.0); Calcium, Blood 7.7 mg/dL (8.5-10.1); Creatinine, Blood 0.79 mg/dL (0.60-1.20); Potassium, Blood 3.8 mmol/L (3.5-5.5); Total Protein, Blood 4.8 g/dL (6.4-8.2)
[2025-03-29 04:50] VITALS: BP 97/69
--- NOTE | 2025-03-29 06:13 | NUR ---
SHIFT SUMMARY PT IS ALERT/DROSWY AT TIME & ORIENTED X4, ABLE TO MAKE NEEDS KNOWN, MOVING ALL EXTREMITIES WITH PURPOSE/ DOES HAVE RIGHT LEG WEAKNESS-PT STATES THAT HE HAS HX OF CVA, BED ALARM ACTIVE, USING CALL LIGHT APPROPRIATELY, STAFF ASSISTING PT WITH REPOSITIONING IN BED. CONTINUOUS SPO2, SPO2 GREATER THAN 90% ON RA, LUNGS SOUND CLEAR T/O AND DIM IN THE BASES WITH OCCASIONAL EXPRIORITY WHEEZING. CONTINUOUS TELE MONITORING, AFLUTTER 100-110 S, PT DENIES CHEST P/P, PULSES PRESENT T/O, BP STABLE WITH MAP GREATER THAN 65, CAP REFILL WNL. BOWEL TONES PRESENT IN ALL 4Q, PT DENIES FEELINGS OF NAUSEA OR CONSTIPATION. PT DID HAVE A DARK SMEER ON HIS ATTENDS THIS SHIFT/ MD NOTIFIED STOOL SAMPLE ORDERED. FARLEY CATH IN PLACE/SECURE/DRAINING TO GRAVITY, URINE BYRON IN COLOR. BLE HAS SCABS AND REDNESS, RIGHT HIP NO SIGNS OF BURISING BUT IS FIRM AND TENDER TO TOUCH. PT REPORTING PAIN TO HIS RIGHT HIP TYLENOL GIVEN PER EMAR/ PT STATES THAT IT DOES NOT WORK/ CALLED MD WITH ALTERNATIVES FOR PAIN MANAGEMENT- NEW ORDER PLACED. PT EASILY BECOMES AGITATED WITH CARE/RAISING HIS TONE WITH STAFF. BED LOWEST POSITION, CALL LIGHT IN REACH, AWAITING TO GIVE REPORT TO ONCOMING RN.
--- NOTE | 2025-03-29 07:45 | NUR ---
ASSUMPTION NOTE: THIS RN TO ASSUME CARE OF PATIENT, PATIENT RESTING IN BED, EASILY AROUSABLE. PATIENT HAS NO COMPLAINTS CURRENTLY, HAS CALL LIGHT WITHIN REACH & BED IN LOWEST POSITION.
[2025-03-29 08:00] VITALS: BP 97/68
--- NOTE | 2025-03-29 08:23 | NUR ---
MD CALLED: THIS RN CALLED MD REGARDING NEEDING PARAMETERS FOR MEDICATIONS IN PATIENTS EMAR. THIS RN NOTIFIED MD THAT PATIENTS BLOOD PRESSURE WAS SYSTOLIC IN 90'S AND WAS GOING TO BE GIVEN MIDODRINE & METOPROLOL. MD GAVE VERBAL ORDER TO ADD IN PARAMETERS FOR BOTH MEDICATIONS THAT WERE NEEDED & HE WOULD BE BY SHORTLY.
[2025-03-29] MEDS ORDERED: Polyethylene Glycol 3350 17 gm PO PRN (08:50)
--- NOTE | 2025-03-29 09:03 | NUR ---
MD ROUNDED: MD AND ATTENDING CAME TO BEDSIDE AND CHATTED WITH PATIENT. PATIENT AGREEABLE TO MIRALAX HE REFUSED THE MILK OF MAG. PATIENT WAS EDUCATED THAT HE HAS NOT HAD A BOWEL MOVEMENT IN 3 DAYS.
[2025-03-29] MEDS ORDERED: Midodrine 5 MG Tab PO PRN ×2 (11:45→12:10)
[2025-03-29] MEDS ORDERED: Amiodarone HCl 200 MG Tab PO SCH (11:56)
[2025-03-29 12:06] VITALS: BP 114/69
--- NOTE | 2025-03-29 13:10 | NUR ---
ROUNDED: MD ROUNDED AND NOTIFIED PATIENT THAT HE WILL BE NPO AT MIDNIGHT FOR IR CONSULT IN THE MORNING. RN IN THE AM WILL NEED TO CALL [facility] OFFICE FOR CONSULT.
[2025-03-29 16:00] VITALS: BP 100/67
--- NOTE | 2025-03-29 16:54 | NUR ---
SHIFT SUMMARY: PATIENT IS ALERT AND ORIENTED X4 & COOPERATIVE WITH HIS CARE AT TIMES, IS ABLE TO MAKE NEEDS KNOWN & USES CALL LIGHT APPROPRIATELY. PATIENT SATTING >92% ON ROOM AIR. ON TELE SHOWING AFIB WITH RATE BETWEEN 90-110. PATIENT HAD A VISITOR TODAY. PATIENT AWARE HE WILL BECOME NPO AT [facility] AND THE RN WILL NEED TO CALL THE CONSULT IN THE AM. PLAN CONTINUES TO BE GIVEN ANTIBIOTICS & GET THE RIGHT ABSCESS DRAINED TOMORROW. PATIENT HAS CALL LIGHT WITHIN REACH, BED IN LOWEST POSITION & STATING NOTHING IS NEEDED AT THIS TIME.
[2025-03-29 19:35] VITALS: BP 118/77
[2025-03-29] MEDS ORDERED: OxyCODONE HCL 5 MG TAB PO PRN (20:10)
--- NOTE | 2025-03-29 20:50 | NUR ---
2015 - PT AGITATED, REQUESTING TO LEAVE AMA. UPON DISCUSSION WITH PATIENT HE STATES "SOMEONE CAME IN HERE AND PLAYED WITH MY EAR AND WOKE ME UP" HE REPORTS FEELING FRUSTRATED WITH IV BEEPING AND NOT BEING ABLE TO SLEEP. REFUSING TO WEAR TELEMETRY. EDUCATED ON RISKS. REFUSING VITALS. NOTIFIED DR. WOMACK AND ORDER FOR INCREASE IN SLEEPING MEDICATIONS AND PAIN CONTROL TO HELP PATIENT BE MORE COMFORTABLE. 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
[2025-03-29] MEDS ORDERED: Metoprolol Tartrate 50 MG Tab PO SCH (21:00)
[2025-03-29] MEDS ORDERED: TraZODone HCl 100 MG Tab PO SCH (21:00)
[2025-03-29 23:56] LABS: Stool Occult Bld Immuno 1 Positive (NEGATIVE)
[2025-03-30] VITALS: BP 143/120; BP 159/89
--- NOTE | 2025-03-30 01:27 | NUR ---
NURSE NOTE: PATIENT REFUSED HIS SCHEDULED IV ANTIBIOTICS STATES" I DONT WANT THEM. EDUCATED ON THE REASON FOR HIS ANTIBIOTICS AND PATIENT STATED" I SAID I DONT WANT THEM AND YOU CANT MAKE ME. REPEATEDLY STATED THAT HE IS GOING TO LEAVE AND NOW STATES HE WILL LEAVE IN THE MORNING. PATIENT REMINDED THAT HE HAD LEFT THE HOSPITAL PREVIOUSLY AND WAS BROUGHT BACK DUE TO HIS HEALTH CONDITION. DR PUENTE MADE AWARE OF PATIENTS NON COMPLIANCE WITH MEDICATION, AND THE BLOOD OCCULT RESULTS.
[2025-03-30] MEDS ORDERED: Temazepam 7.5 MG Cap PO ONE (02:15)
[2025-03-30 04:31] VITALS: BP 88/65
[2025-03-30 04:44] VITALS: BP 88/66
[2025-03-30 05:30] VITALS: BP 93/71
[2025-03-30 05:50] LABS: Hematocrit 30.9 % (37.0-53.0); Hemoglobin 10.1 g/dL (13.5-17.5); Mean Corpuscular HGB 32.2 pg (26.0-34.0); Mean Corpuscular HGB Conc 32.7 g/dL (31.5-36.5); Mean Corpuscular Volume 98 fL (80-100); Platelet Count 178 K/mm3 (150-400); RDW Coefficient Variation 16.9 % (11.7-14.2); RDW Standard Deviation 58.9 fL (35.1-46.3); Red Blood Cell Count 3.14 M/mm3 (4.30-5.90); White Blood Cell Count 40.59 K/mm3 (4.00-11.30)
--- NOTE | 2025-03-30 06:01 | NUR ---
PT CONTINUES TO DECLINE TELEMETRY THIS AM AFTER WEARING FOR SEVERAL HOURS. EDUCATED ON IMPORTANCE AND POSSIBILITY OF IF UNMONITORED. CONTINUES TO REFUSE. REQUESTING REMOVAL OF FARLEY CATHETER AND AGITATED, STATING "I'M GONNA BE OUT HERE IN TWO HOURS!" ANSWERED ORIENTATION QUESTIONS APPROPRIATELY. NOTIFIED DR. PUENTE AND OK TO REMOVE FARLEY PER PT REQUEST. EDUCATED PT ON POSSIBILITY OF NEEDING STRAIGHT CATH AND/OR REPLACEMENT OF FARLEY CATHETER. VERBALIZED UNDERSTANDING. FARLEY REMOVED WITHOUT ISSUE.
[2025-03-30 06:11] LABS: BAND PERCENT MAN 13 % (0-8); BASOPHILS PERCENT MAN 0 % (0-2); EOSINOPHILS PERCENT MAN 0 % (0-6); LYMPHOCYTES ABSOLUTE MAN 1.21 K/mm3 (0.84-5.20); LYMPHOCYTES PERCENT MAN 3 % (21-46); MONOCYTES ABSOLUTE MAN 2.02 K/mm3 (0.16-1.47); MONOCYTES PERCENT MAN 5 % (4-13); NEUTROPHILS ABSOLUTE MAN 37.34 K/mm3 (1.96-9.15); SEG NEUTROPHILS PERCENT MAN 79 % (41-73); TOTAL CELLS COUNTED 100
[2025-03-30 06:13] LABS: Albumin, Blood 1.8 g/dL (3.4-5.0); Albumin/Globulin Ratio 0.6 (0.8-1.8); Bilirubin, Total 1.7 mg/dL (0.1-1.0); Bun/Creatinine Ratio 32.2 (12.0-20.0); Calcium, Blood 7.7 mg/dL (8.5-10.1); Creatinine, Blood 0.65 mg/dL (0.60-1.20); Potassium, Blood 4.1 mmol/L (3.5-5.5); Total Protein, Blood 4.8 g/dL (6.4-8.2)
--- NOTE | 2025-03-30 06:52 | NUR ---
REFUSING NPO STATUS THIS AM. CALL TO PROVIDER, AWAITING RETURN CALL
--- NOTE | 2025-03-30 07:22 | NUR ---
AT SHIFT CHANGE PATIENT IS AGITATED AND IRRITABLE, PATIENT WANTING TO LEAVE AMA. SOLEDAD RN IN TO TALK WITH PATIENT IN REGARDS TO RISK VS BENEFITS. DR. ALTMAN AND DR. ENRIQUE IN AT BEDSIDE TO DISCUSS PATIENTS CONDITION AND RISKS OF LEAVING WELL THE NEED TO STAY FOR TREATMENT, PATIENT STATED "I AM NOT STAYING, THEY HAVE ALREADY KEPT ME AGAINST MY WILL" DR. ALTMAN RESPONDED "WE ARE NOT GOING TO KEEP YOU HERE IF YOU DONT WANT TO STAY, YOUR MARKERS ARE STILL VERY HIGH AND YOU HAVE THAT AREA TO YOU LOWER BACK SIDE" PATIENT RESPONDED "I DONT CARE I WILL GO SOMEWHERE ELSE, I WILL NEVER COME BACK HERE AND I WOULD NEVER RECOMMEND ANYONE TO COME HERE EVER AGAIN". PATIENT IS LEAVING AMA, LINES REMOVED, AMA FORM SIGNED.
[2025-03-30] MEDS ORDERED: Vancomycin HCL 1,000 MG in NS 250 ML IV SCH (08:00)
--- NOTE | 2025-03-30 09:01 | NUR ---
AMA DISCHARGE: PATIENT REFUSED VITALS AND ASSESSMENT. PATIENT WHEELED OUT VIA WC TO FRIEND DUANE CAR. ALL BELONGINGS WITH PATINET IN PAPER SCRUB TOP AND PANTS ON DISCHARGE ALL IVS REMOVED, TELEMETRY OFF. FARLEY DISCHARGED DURING ANIMAL BEHAVIOURIST. PATIENT UNDERSTOOD ALL RISK AND EDUCATED ABOUT NEED FOR STAY. STILL REFUSED.
== END 2025-03-30 08:55 | disposition left against medical advice (07) | DRG 871 ==
LOC: ER 06:45 → PCU 06:46
PROVIDERS: Family Medicine; Internal Medicine; Student in an Organized Health Care Education/Training Program; ADMIT Internal Medicine
PROC: 3E03329 Introduction of Other Anti-infective into Peripheral Vein, Percutaneous Approach (ICD-10-PCS; principal; 2025-03-27)
PROC: 30233J1 Transfusion of Nonautologous Serum Albumin into Peripheral Vein, Percutaneous Approach (ICD-10-PCS; 2025-03-27)
DX: A41.9 Sepsis, unspecified organism (principal); J18.9 Pneumonia, unspecified organism; J96.01 Acute respiratory failure with hypoxia; I48.20 Chronic atrial fibrillation, unspecified; E87.29 Other acidosis; I50.22 Chronic systolic (congestive) heart failure; N17.9 Acute kidney failure, unspecified; L02.31 Cutaneous abscess of buttock; I48.92 Unspecified atrial flutter; J44.0 Chronic obstructive pulmonary disease with (acute) lower respiratory infection; I11.0 Hypertensive heart disease with heart failure; F15.129 Other stimulant abuse with intoxication, unspecified; E16.2 Hypoglycemia, unspecified; F12.90 Cannabis use, unspecified, uncomplicated; R65.20 Severe sepsis without septic shock; E83.51 Hypocalcemia; M25.551 Pain in right hip; G89.29 Other chronic pain; I45.10 Unspecified right bundle-branch block; R91.8 Other nonspecific abnormal finding of lung field; I71.40 Abdominal aortic aneurysm, without rupture, unspecified; I72.3 Aneurysm of iliac artery; Z98.890 Other specified postprocedural states; Z88.8 Allergy status to other drugs, medicaments and biological substances; Z88.5 Allergy status to narcotic agent; Z79.82 Long term (current) use of aspirin; Z79.01 Long term (current) use of anticoagulants; Z79.84 Long term (current) use of oral hypoglycemic drugs; Z87.891 Personal history of nicotine dependence; I48.91 Unspecified atrial fibrillation; I65.29 Occlusion and stenosis of unspecified carotid artery
CPT/HCPCS: 36415; 51701; 70450; 71045; 72125; 72192; 73502; 74177; 80047; 80053; 80202; 81001; 82274; 82803; 82947; 83605; 83735; 83880; 84100; 84145; 84443; 84484; 85014; 85025; 87040; 93005; 93010; 94640; 94664; 94760; 96365; 96366; 96367; 96375; 96376; 99284-25; 99285-25; A9270; G0378; J0282; J0612; J0692; J0696; J1885; J2060; J3370; J7040; J7050; J7060; J7120; J7799; P9047; Q9967

== ENCOUNTER 2025-03-31 08:20 | Inpatient (IN) | payer OTHER ==
[~2025-03-31] VITALS: Ht 185.4 cm; Wt 101.4 kg
[2025-04-03 04:00] VITALS: BP 122/65
== END 2025-04-03 09:36 | disposition left against medical advice (07) | DRG 871 ==
LOC: ER 08:20 → ERHOLD 12:37 → PCU 12:37 → MEDS 04-02 15:47
PROVIDERS: ADMIT Hospitalist
DX: A41.9 Sepsis, unspecified organism (principal); I50.23 Acute on chronic systolic (congestive) heart failure; L02.31 Cutaneous abscess of buttock; E87.20 Acidosis, unspecified; I48.0 Paroxysmal atrial fibrillation; J44.9 Chronic obstructive pulmonary disease, unspecified; E83.39 Other disorders of phosphorus metabolism; J98.4 Other disorders of lung; I11.0 Hypertensive heart disease with heart failure; I45.10 Unspecified right bundle-branch block; R65.20 Severe sepsis without septic shock; S30.0XXA Contusion of lower back and pelvis, initial encounter; W06.XXXA Fall from bed, initial encounter; F17.200 Nicotine dependence, unspecified, uncomplicated; Z53.29 Procedure and treatment not carried out because of patient's decision for other reasons; Z88.8 Allergy status to other drugs, medicaments and biological substances; Z88.5 Allergy status to narcotic agent; Z79.82 Long term (current) use of aspirin; Z79.01 Long term (current) use of anticoagulants; Z79.84 Long term (current) use of oral hypoglycemic drugs

== ENCOUNTER 2025-04-03 12:50 | Inpatient (IN) | payer OTHER ==
[~2025-04-03] VITALS: Ht 185.4 cm; Wt 102.5 kg
[~2025-04-03 12:50] MED LIST changes: +METOPROLOL TART25 MG
[2025-04-03] MEDS ORDERED: Ketorolac Tromethamine 15mg Vial IV ONE (13:20)
[2025-04-03 13:50] LABS: Hematocrit 35.7 % (37.0-53.0); Hemoglobin 11.6 g/dL (13.5-17.5); Mean Corpuscular HGB Conc 32.5 g/dL (31.5-36.5); Mean Corpuscular Volume 99 fL (80-100); Mean Platelet Volume 9.6 fL (9.1-12.4); Platelet Count 327 K/mm3 (150-400); RDW Standard Deviation 63.4 fL (35.1-46.3); Red Blood Cell Count 3.62 M/mm3 (4.30-5.90); White Blood Cell Count 42.93 K/mm3 (4.00-11.30)
[2025-04-03 14:10] LABS: Albumin, Blood 2.3 g/dL (3.4-5.0); Albumin/Globulin Ratio 0.6 (0.8-1.8); Bun/Creatinine Ratio 34.2 (12.0-20.0); Calcium, Blood 8.2 mg/dL (8.5-10.1); Creatinine, Blood 0.67 mg/dL (0.60-1.20); Globulin, Blood 3.8 g/dL (2.2-4.0); Total Protein, Blood 6.1 g/dL (6.4-8.2)
[2025-04-03 14:13] LABS: BASOPHILS PERCENT MAN 0 % (0-2); EOSINOPHILS PERCENT MAN 0 % (0-6); LYMPHOCYTES ABSOLUTE MAN 1.71 K/mm3 (0.84-5.20); LYMPHOCYTES PERCENT MAN 4 % (21-46); MONOCYTES ABSOLUTE MAN 1.71 K/mm3 (0.16-1.47); MONOCYTES PERCENT MAN 4 % (4-13); NEUTROPHILS ABSOLUTE MAN 39.49 K/mm3 (1.96-9.15); SEG NEUTROPHILS PERCENT MAN 92 % (41-73); TOTAL CELLS COUNTED 100
[2025-04-03] MEDS ORDERED: Lactated Ringer's 1,000 ML IV ONE (15:35)
[2025-04-03] MEDS ORDERED: Cefepime HCl 2,000 MG in NS 100 ML IV ONE (15:35)
[2025-04-03] MEDS ORDERED: Clarify Drug Order XX ONE (15:50)
[2025-04-03] MEDS ORDERED: Ipratropium/Albuterol SulF 2.5-0.5MG/3 ML Amp INH SCH (18:50)
[2025-04-03] MEDS ORDERED: Albuterol 2.5 MG/3 ML VIAL INH PRN (18:50)
[2025-04-03] MEDS ORDERED: Furosemide 10 MG / ML 2ML Vial IV ONE (19:00)
[2025-04-03] MEDS ORDERED: Digoxin 0.25 MG/ML 2ML Amp IV ONE (19:00)
[2025-04-03] MEDS ORDERED: Metoprolol Tartrate 50 MG Tab PO SCH (21:00)
[2025-04-03] MEDS ORDERED: Apixaban 5 MG Tab PO SCH (21:00)
[2025-04-03] MEDS ORDERED: Lactobacil 2-S.Thermo-Bifido 1 1 Cap PO SCH (21:00)
[2025-04-03] MEDS ORDERED: Amiodarone HCl 200 MG Tab PO SCH (21:00)
--- NOTE | 2025-04-03 21:05 | NUR ---
PHYSICIAN CONTACT NOTIFIED RESIDENT OF CRITICAL RESULT FOR LACTIC ACID OF 2.6.NO NEW ORDERS AT THIS TIME.
[2025-04-03 21:14] VITALS: BP 100/79
[2025-04-03 21:39] VITALS: BP 91/78
[2025-04-03] MEDS ORDERED: Nicotine 14 MG PATCH TOP SCH (22:00)
[2025-04-03 23:12] VITALS: BP 114/73
[2025-04-04] MEDS ORDERED: Cefepime HCl 2,000 MG in NS 100 ML IV SCH
[2025-04-04 02:23] LABS: U Amphetamine Screen Not Detected; U Barbituate Screen Not Detected; U Benzodiazapine Screen DETECTED; U Cannabinoids Screen DETECTED; U Cocaine Screen Not Detected; U Methadone Screen Not Detected; U Methamphetamine Screen Not Detected; U Opiates Screen Not Detected; U Phencyclidine Screen Not Detected
[2025-04-04 02:24] LABS: U Buprenorphine Screen Not Detected; U Oxycodone Screen DETECTED
[2025-04-04 03:01] VITALS: BP 102/85; BP 143/129
[2025-04-04] MEDS ORDERED: FentaNYL Citrate 50 MCG/ML 2 ML Injection IV PRN (03:35)
[2025-04-04 05:14] LABS: BASOPHILS ABSOLUTE AUTO 0.09 K/mm3 (0.00-0.23); BASOPHILS PERCENT AUTO 0 % (0-2); EOSINOPHILS ABSOLUTE AUTO 0.11 K/mm3 (0.00-0.68); EOSINOPHILS PERCENT AUTO 0 % (0-6); Hematocrit 33.1 % (37.0-53.0); Hemoglobin 10.7 g/dL (13.5-17.5); IMMATURE GRAN ABSOLUTE AUTO 0.78 K/mm3 (0.00-0.10); IMMATURE GRAN PERCENT AUTO 3 % (0-1); LYMPHOCYTES ABSOLUTE AUTO 0.92 K/mm3 (0.84-5.20); LYMPHOCYTES PERCENT AUTO 3 % (21-46); MONOCYTES ABSOLUTE AUTO 0.88 K/mm3 (0.16-1.47); MONOCYTES PERCENT AUTO 3 % (4-13); Mean Corpuscular HGB 31.8 pg (26.0-34.0); Mean Corpuscular HGB Conc 32.3 g/dL (31.5-36.5); Mean Corpuscular Volume 99 fL (80-100); Mean Platelet Volume 9.6 fL (9.1-12.4); NEUTROPHILS ABSOLUTE AUTO 29.02 K/mm3 (1.96-9.15); NEUTROPHILS PERCENT AUTO 91 % (41-73); Platelet Count 309 K/mm3 (150-400); RDW Coefficient Variation 18.5 % (11.7-14.2); RDW Standard Deviation 66.2 fL (35.1-46.3); Red Blood Cell Count 3.36 M/mm3 (4.30-5.90)
[2025-04-04 05:18] LABS: Base Excess Venous 7.4 mmol/L; Bicarbonate Venous 29.4 mmol/L (24.0-30.0); PCO2 Venous 47.3 mmHg (38-42); pH Blood Venous 7.43 (7.34-7.37)
--- NOTE | 2025-04-04 05:32 | NUR ---
SHIFT SUMMARY PT A&O X3-4, IMPULSIVE AT TIMES, BED ALARM ON FOR SAFETY. VSS, AFEBRILE, SPO2 >90% ON RA WHILE AWAKE AND 1-2L ASLEEP. TELE SHOWS AFIB 90'S-110'S. HE DENIES CP. ENDORSES GARCIA. PT WITH WEEPING WOUNDS OF BLE, REPORTS PAIN OF 10/10. MEDICATED PER EMAR. PT WITH LABILE MOOD AND WILL GET AGITATED AND THREATEN TO LEAVE. HE IS SITTING IN RECLINER, CHAIR ALARM ON, CALL LIGHT IN REACH, BREATHING IS EVEN AND UNLABORED.
[2025-04-04 05:43] LABS: Alanine Aminotransfer (ALT/SGP 31 U/L (12-78); Albumin, Blood 1.9 g/dL (3.4-5.0); Albumin/Globulin Ratio 0.5 (0.8-1.8); Alk Phos 419 U/L (50-136); Anion Gap 8 mmol/L (3-11); Aspartate Aminotrans (AST/SGOT 48 U/L (12-37); Bilirubin, Total 1.7 mg/dL (0.1-1.0); Blood Urea Nitrogen 23 mg/dL (8-24); Bun/Creatinine Ratio 32.7 (12.0-20.0); CO2, Blood 28 mmol/L (21-32); Calcium, Blood 7.9 mg/dL (8.5-10.1); Chloride, Blood 104 mmol/L (98-108); Globulin, Blood 3.5 g/dL (2.2-4.0); Glomerular Filtration Rate 100 (60-); Glucose, Blood 83 mg/dL (70-99); Magnesium, Blood 2.2 mg/dL (1.6-2.4); Phosphorus, Blood 2.5 mg/dL (2.5-4.9); Potassium, Blood 4.2 mmol/L (3.5-5.5); Sodium, Blood 136 mmol/L (136-145); Total Protein, Blood 5.4 g/dL (6.4-8.2); Vancomycin, Trough 13.4 ug/mL (5.0-10.0)
[2025-04-04] MEDS ORDERED: Vancomycin HCL 1,250 MG in NS 250 ML IV SCH (06:01)
[2025-04-04 06:58] VITALS: BP 104/76
--- NOTE | 2025-04-04 06:59 | NUR ---
Received report from NOC RN. Patient resting in bed stating cold in room which it was. Gave warnm blankets. He has 2 IV's ti R arm and has Heparin infusing at 24 units/kg/min. He speech is clear and he understands why he is here. He is also on CPAP and 15L bleeed in and sats 100% and denies current SOB. Has not current needs. MAEW. Denies any current pain and wants to continue to rest. He is on Isolation r/o TB.
--- NOTE | 2025-04-04 07:26 | NUR ---
rECEIVED REPORT FROM noc rn. pATIENT SITTING AT BEDSIDE WITH CHUCKS UNDER FEET. SPEECH CLEAR AND PATIENT IS ABLE TO COMMUNICATE HIS NEEDS. HE STATES WANTS BATH AND IS AGREEABLE TO WAIT. AFTER VS HE IS STABLE AND ASKED SENIOR INTEGRATION ARCHITECT TO GET UP TO SHOWER AND HE IS IN CHAIR BATHING SELF. HE HAS 20GA TO R HAND WITH VANCO INFUSING, HE HAS AREAS OF BRUISING THROUGHOUT AND CELLULITUS MID THIGH TO RIGHT LEG AND AROUND LEFT KNEES WITH HEALING SCAB. VSS.
--- NOTE | 2025-04-04 09:30 | NUR ---
Patient has been resting since shower. Hehas been laying on left side by choice. He tolerated am meds and breakfast well. His legs continue to weep. He continues IV antibiotics. His hospitalist have been by to assess and he states ongoing SOB as a chronic condition. Patient has been calm and cooperative with his care.
--- NOTE | 2025-04-04 11:32 | NUR ---
Patient awoke and is very agitated and wants to go home. I have had several conversations about trying to stay. Called Dr Lopez and his two interns and Dr Lopez came by and talked with him. I reviewed AMA paperwork with hime and we talked about the risks and beneist of leaving. He talked with Dr's about sending him home with antibiotics and they felt he needed to continue IV. He is very atimate about leaving. got a hol;d of oldest son and he is coming to get himin 30 minutes. Patient up in room with walker using bathroom and currently being patient. Patient has removed leads and pulse ox and is sitting at bedside. Legs continue to weep alot.
[2025-04-04 11:43] VITALS: BP 115/97
--- NOTE | 2025-04-04 12:57 | NUR ---
Patient son Kwaku arrived and educated both on the need of continue antibiotic and for them to follow up with PCP. IV pulled intact and his belongings were taken by son in two bags. He was taken out to POV by wheelchair.
[2025-04-04] MEDS ORDERED: Metoprolol Tartrate 50 MG Tab PO SCH (21:00)
== END 2025-04-04 13:04 | disposition left against medical advice (07) | DRG 871 ==
LOC: ER 12:50 → PCU 20:23
PROVIDERS: Nurse Practitioner Acute Care; Physician Assistant; Student in an Organized Health Care Education/Training Program; ADMIT Internal Medicine
DX: A41.9 Sepsis, unspecified organism (principal); I50.23 Acute on chronic systolic (congestive) heart failure; L02.31 Cutaneous abscess of buttock; R65.20 Severe sepsis without septic shock; J44.9 Chronic obstructive pulmonary disease, unspecified; I48.91 Unspecified atrial fibrillation; I11.0 Hypertensive heart disease with heart failure; J98.4 Other disorders of lung; F15.10 Other stimulant abuse, uncomplicated; F17.210 Nicotine dependence, cigarettes, uncomplicated; Z53.29 Procedure and treatment not carried out because of patient's decision for other reasons; Z88.8 Allergy status to other drugs, medicaments and biological substances; Z88.5 Allergy status to narcotic agent; Z79.82 Long term (current) use of aspirin; Z79.01 Long term (current) use of anticoagulants
CPT/HCPCS: 36415; 80053; 80202; 82550; 82803; 83036; 83605; 83690; 83735; 83880; 84100; 84484; 85025; 93005; 93010; 94640; 94664; 94762; 96365; 96375; 99285-25; A9270; J0692; J1160; J1885; J1938; J3010; J3370; J7050; J7120